=== PATIENT | female | born 1950 | race Caucasian/White ===

== ENCOUNTER 2022-11-15 12:45 | Inpatient (IN) ==
[2022-11-15] MEDS ORDERED: SODIUM CHLORIDE 0.9% 1000ML 1,000 ML IV ONE ×2 (13:27→13:38)
--- NOTE | 2022-11-15 13:49 | Emergency Department Note ---
ED Provider Note History of Present Illness Chief Complaint: Fever Stated Complaint: FEVER, URINARY SYMPTOMS - STENT REMOVAL WEDNESDAY Time Seen by Provider: 11/15/22 13:01 Source: patient Mode of arrival: ambulatory Limitations: no limitations This patient is a 72-year-old female who presents to the emergency department for evaluation of fever, right flank pain and urinary symptoms. She reports that she was treated for a UTI approximately 1 month ago. She then had a kidney stone and had surgery to remove the stone 11/03/2022. A stent was placed at that time. Patient had the stent removed 2 days ago in the office. Patient she has had persistent right flank pain since the removal of the stent. She developed a fever last night. Temperature 103 F this morning. She did take 1 g Tylenol 2 hours prior to arrival. She has had vomiting, dysuria and urinary incontinence. She states that she has had the urinary incontinence since the first UTI. Home Medications Medication Instructions Recorded Confirmed Type aspirin 81 mg tablet,delayed 81 mg PO QAM 08/24/19 11/15/22 History release atorvastatin 40 mg tablet 40 mg PO PM 08/24/19 11/15/22 History lisinopril 10 mg tablet 10 mg PO QPM 08/24/19 11/15/22 History metformin 1,000 mg tablet 1,000 mg PO BID 08/24/19 11/15/22 History pantoprazole 40 mg tablet,delayed 40 mg PO QAM 08/24/19 11/15/22 History release oxycodone-acetaminophen 5 mg-325 1 tab PO Q6H PRN pain #14 tabs 08/29/19 11/15/22 Rx mg tablet (Percocet) alendronate 70 mg tablet 70 mg PO WK 11/15/22 11/15/22 History tamsulosin 0.4 mg capsule 0.4 mg PO DAILY 11/15/22 11/15/22 History venlafaxine 75 mg capsule,extended 75 mg PO QAM 11/15/22 11/15/22 History release 24 hr Allergies Allergy/AdvReac Type Severity Reaction Status Date / Time meperidine [From Demerol] Allergy Severe DIFFICULTY Verified 11/15/22 15:32 WITH BREATHING morphine Allergy Intermediate ITCHING Verified 11/15/22 15:32 ALL OVER Past Med/Surg History Medical History Anxiety Degenerative disc disease Diabetes mellitus, type 2 A1C 7.6%06/22/19, but glucose 243 on pre op labs. In review of notes in S, PCP monitoring sugars, did not make any changes to meds as still <8%. Suggested pt may be skipping some Metformin doses due to nausea from cholelithiasis? Frequent UTI NOT CURRENT Gallstones GERD (gastroesophageal reflux disease) Hiatal hernia History of kidney stones Hx of endometriosis Hx of migraines Hyperlipidemia Hypertension Osteoarthritis Surgical History H/O laparoscopy H/O total hysterectomy History of cataract surgery RT/LEFT History of ERCP X 2 History of tooth extraction Family History Mother Family history of diabetes mellitus Social History Smoking Status: Never smoker Second Hand Exposure: No; Do You Dip or Chew Tobacco: No; Hx Alcohol Use: Yes Alcohol type: beer and wine Hx Substance Use: No Preferred Language: Kyrgyz Communication Ability: Effective Lawn Technician Required: No Beliefs That Will Affect Care: None Current Living Situation: Family Current Living Situation Comment: Patient lives with daughterEster Other Information That Helps Us Care for You: No Feels Safe at Home: Yes Safety Concerns: Feels Safe At This Time Assistive Devices: Glasses Physical Exam Vital Signs Vital Signs - 24 hr 11/15/22 12:49 11/15/22 13:24 11/15/22 13:16 Temperature 36.6 C Temperature Source Temporal Artery Scan Pulse Rate 98 H 82 78 Pulse Rate from SpO2 Sensor 79 Respiratory Rate 20 19 Respiratory Effort / Characteristics Non-Labored Spontaneous Respiratory Depth Normal Respiratory Pattern Regular Blood Pressure 101/70 124/69 Blood Pressure Mean 80 87 Blood Pressure Position Sitting Pulse Oximetry 96 92 Oxygen Delivery Method Room Air Sepsis Recent Fever Within 48 Hours Yes Sepsis New/Unexplained Change in Mental Status No Sepsis Action Taken by Nursing No Action Required 11/15/22 13:40 11/15/22 13:50 11/15/22 13:59 Temperature Temperature Source Pulse Rate 88 Pulse Rate from SpO2 Sensor 91 H 98 H 90 Respiratory Rate 27 H 29 H 22 Respiratory Effort / Characteristics Respiratory Depth Respiratory Pattern Blood Pressure 150/81 H Blood Pressure Mean 104 Blood Pressure Position Pulse Oximetry 95 93 Oxygen Delivery Method Sepsis Recent Fever Within 48 Hours Sepsis New/Unexplained Change in Mental Status Sepsis Action Taken by Nursing 11/15/22 14:01 11/15/22 15:00 11/15/22 15:10 Temperature Temperature Source Pulse Rate 94 H 105 H Pulse Rate from SpO2 Sensor 86 107 H Respiratory Rate 25 H 18 27 H Respiratory Effort / Characteristics Respiratory Depth Respiratory Pattern Blood Pressure 144/67 H Blood Pressure Mean 92 Blood Pressure Position Pulse Oximetry 98 90 90 Oxygen Delivery Method Sepsis Recent Fever Within 48 Hours Sepsis New/Unexplained Change in Mental Status Sepsis Action Taken by Nursing 11/15/22 15:20 11/15/22 15:35 Temperature 39.1 C H Temperature Source Oral Pulse Rate 110 H Pulse Rate from SpO2 Sensor 110 H Respiratory Rate 24 Respiratory Effort / Characteristics Respiratory Depth Respiratory Pattern Blood Pressure Blood Pressure Mean Blood Pressure Position Pulse Oximetry 93 Oxygen Delivery Method Sepsis Recent Fever Within 48 Hours Sepsis New/Unexplained Change in Mental Status Sepsis Action Taken by Nursing VITALS: Vitals are noted on the nurse's note and reviewed by myself. GENERAL: This is a 72-year-old female, ill-appearing. SKIN: The skin was without rashes. EYES: Pupils equal round and reactive to light and accommodation. MOUTH: Mucous membranes moist. HEART: Regular rate and rhythm without murmurs gallops or rubs. LUNGS: Clear to auscultation bilaterally without wheezes, rales or rhonchi. No retractions or accessory muscle use. ABDOMEN: Positive bowel sounds x 4. Tenderness in the right upper and right lower quadrants. Right CVA tenderness noted. NEURO: Patient was alert and oriented to person place and time. Course Administered Medications Atorvastatin Calcium (Atorvastatin 40 Mg Tab) 40 mg PO PM [facility] Stop: 12/15/22 20:59 Last Admin: 11/15/22 20:48 Dose: 40 mg Documented By: JOAQUINA Cefepime HCl 2,000 mg/ Syringe 20 mls @ 5 mls/min IV Q8H SID; Protocol Stop: 11/25/22 19:59 Last Admin: 11/15/22 20:48 Dose: 5 mls/min Documented By: JOAQUINA Sodium Chloride (Nss 1000ml) 1,000 mls @ 100 mls/hr IV .Q10H [facility] Stop: 11/16/22 05:59 Last Admin: 11/15/22 20:48 Dose: 100 mls/hr Documented By: JOAQUINA Insulin Aspart (Insulin Aspart Per Unit Charge) 0 units SC ACHS [facility] Stop: 12/15/22 20:59 Last Admin: 11/15/22 20:52 Dose: Not Given Documented By: JOAQUINA Lisinopril (Lisinopril 10 Mg Tab) 10 mg PO QPM [facility] Stop: 12/15/22 20:59 Last Admin: 11/15/22 20:48 Dose: 10 mg Documented By: JOAQUINA Oxycodone HCl (Oxycodone Hcl Ir 5 Mg Tab (Immediate Release)) 5 mg PO Q6H PRN PRN Reason: Severe Pain (Scale 7, 8, 9,10) Stop: 11/29/22 19:20 Last Admin: 11/15/22 20:47 Dose: 5 mg Documented By: JOAQUINA Discontinued Medications Sodium Chloride (Nss 1000ml) 1,000 mls @ 999 mls/hr IV .Q1H1M ONE Stop: 11/15/22 14:27 Last Infusion: 11/15/22 14:51 Dose: 0 mls/hr Documented By: Admin: 11/15/22 13:50 Dose: 999 mls/hr Documented By: PATRICK Sodium Chloride (Nss 1000ml) 1,000 mls @ 999 mls/hr IV .Q1H1M ONE Stop: 11/15/22 14:38 Last Infusion: 11/15/22 15:22 Dose: 0 mls/hr Documented By: Admin: 11/15/22 14:21 Dose: 999 mls/hr Documented By: PATRICK Ceftriaxone Sodium (Rocephin) 2,000 mg in 70 mls @ 140 mls/hr IV NOW STA Stop: 11/15/22 14:24 Last Infusion: 11/15/22 14:51 Dose: 0 mls/hr Documented By: Admin: 11/15/22 14:21 Dose: 140 mls/hr Documented By: PATRICK Acetaminophen (Ofirmev) 1,000 mg in 100 mls @ 400 mls/hr IV NOW STA Stop: 11/15/22 16:00 Last Infusion: 11/15/22 16:51 Dose: 0 mls/hr Documented By: Admin: 11/15/22 16:36 Dose: 400 mls/hr Documented By: DANIEL Ioversol (Optiray 320 100ml) 94 ml IV ONCE ONE Stop: 11/15/22 14:42 Last Admin: 11/15/22 14:41 Dose: 94 ml Documented By: ALDA Ketorolac Tromethamine (Ketorolac Tromethamine 15 Mg/Ml Vial) 15 mg IV NOW ONE Stop: 11/15/22 17:42 Last Admin: 11/15/22 17:54 Dose: 15 mg Documented By: DANIEL Ondansetron HCl (Ondansetron Inj 2 Mg/Ml 2 Ml Vial) 4 mg IV NOW STA Stop: 11/15/22 14:31 Last Admin: 11/15/22 14:32 Dose: 4 mg Documented By: PATRICK Ondansetron HCl (Ondansetron Inj 2 Mg/Ml 2 Ml Vial) Confirm Administered Dose 4 mg .ROUTE .STK-MED ONE Stop: 11/15/22 14:33 Last Admin: 11/15/22 15:24 Dose: Not Given Documented By: JAVED Medical Decision Making Differential Diagnosis Sepsis, UTI, pneumonia, metabolic, electrolyte abnormalities, cardiac sources, intracerebral event, toxicologic, neurologic, as well as other pathologies. Home Medications was personally reviewed by me Laboratory Data Attestation: I reviewed the patient's lab results. 11/15/22 13:27 11/15/22 13:27 Lab Results 11/15/22 11/15/22 11/15/22 Range/Units 13:27 13:27 13:28 WBC 13.19 H (4.8-10.8) K/ul RBC 4.54 (4.20-5.40) M/uL Hgb 11.9 L (12.0-16.0) g/dl POC Hgb (12.0-16.0) g/dl Hct 36.6 L (37.0-47.0) % POC Hct (37-47) % MCV 80.6 (80.0-100.0) fL MCH 26.2 (25.0-34.0) pg MCHC 32.5 (32.0-36.0) g/dL RDW Std Deviation 46.9 H (36.4-46.3) fL RDW Coeff of Jose Luis 16.2 H (11.5-14.5) % Plt Count 198 (130-400) K/uL MPV 10.3 (9.4-12.4) fL Immature Gran % (Auto) 0.5 % Neut % (Auto) 82.9 % Lymph % (Auto) 9.3 % Prentiss % (Auto) 7.0 % Eos % (Auto) 0.0 % Baso % (Auto) 0.3 % Neut # (Auto) 10.94 H (1.40-6.50) K/uL Lymph # (Auto) 1.23 (1.2-3.4) K/uL Prentiss # (Auto) 0.92 H (0.11-0.59) K/uL Eos # (Auto) 0.00 (0-0.50) K/uL Baso # (Auto) 0.04 (0-0.2) K/uL Immature Gran # (Auto) 0.06 (0.01-0.20) K/uL POC Sodium (135-144) mmol/L Sodium 135 L (136-145) mmol/L POC Potassium (3.3-5.0) mmol/L Potassium 3.6 (3.5-5.1) mmol/L POC Chloride (101-112) mmol/L Chloride 100 (98-107) mmol/L Carbon Dioxide 23 (21-32) mmol/L POC Total CO2 (24-31) mmol/L Anion Gap 12 H (3-11) POC Anion Gap (16-25) mmol/L POC BUN (7-18) mg/dl BUN 9 (6-23) mg/dl Creatinine 0.86 (0.6-1.2) mg/dl POC Creatinine (0.6-1.3) mg/dl Est Cr Clr Drug Dosing 59.0 ml/min Est GFR ( Amer) 78.8 ml/min Est GFR (Non-Af Amer) 68.0 ml/min BUN/Creatinine Ratio 10.5 (10-20) Glucose 171 H (70-99(Fasting)) mg/dl POC Glucose (other) (70-99) mg/dl Lactate 2.9 H* (0.4-2.0) mmol/L Calcium 9.9 (8.6-10.3) mg/dl POC Ioniz Calcium Clayton (1.12-1.32) mmol/l Total Bilirubin 1.1 H (0.2-1.0) mg/dl AST 14 (13-39) U/L ALT 9 (7-52) U/L Alkaline Phosphatase 60 (34-104) U/L Total Protein 7.2 (6.0-8.3) gm/dl Albumin 4.2 (3.4-5.0) gm/dl Globulin 3.0 (2.5-4.0) gm/dl Albumin/Globulin Ratio 1.4 (0.9-2) Urine Color Urine Appearance (Clear) Urine pH (4.5-7.5) Ur Specific [place] (1.000-1.030) Urine Protein (Negative) Urine Glucose (UA) (Negative) Urine Ketones (Negative) Urine Blood (Negative) Urine Nitrite (Negative) Urine Bilirubin (Negative) Urine Urobilinogen (Negative) Ur Leukocyte Esterase (Negative) Urine WBC (Auto) (0-5) /hpf Urine RBC (Auto) (0-4) /hpf U Hyaline Cast (Auto) (0-5) /lpf U Epithel Cells (Auto) (0-5) /lpf Urine Bacteria (Auto) (Negative) 11/15/22 11/15/22 11/15/22 Range/Units 13:38 15:19 15:19 WBC (4.8-10.8) K/ul RBC (4.20-5.40) M/uL Hgb (12.0-16.0) g/dl POC Hgb 13.3 (12.0-16.0) g/dl Hct (37.0-47.0) % POC Hct 39 (37-47) % MCV (80.0-100.0) fL MCH (25.0-34.0) pg MCHC (32.0-36.0) g/dL RDW Std Deviation (36.4-46.3) fL RDW Coeff of Jose Luis (11.5-14.5) % Plt Count (130-400) K/uL MPV (9.4-12.4) fL Immature Gran % (Auto) % Neut % (Auto) % Lymph % (Auto) % Prentiss % (Auto) % Eos % (Auto) % Baso % (Auto) % Neut # (Auto) (1.40-6.50) K/uL Lymph # (Auto) (1.2-3.4) K/uL Prentiss # (Auto) (0.11-0.59) K/uL Eos # (Auto) (0-0.50) K/uL Baso # (Auto) (0-0.2) K/uL Immature Gran # (Auto) (0.01-0.20) K/uL POC Sodium 137 (135-144) mmol/L Sodium (136-145) mmol/L POC Potassium 3.6 (3.3-5.0) mmol/L Potassium (3.5-5.1) mmol/L POC Chloride 101 (101-112) mmol/L Chloride (98-107) mmol/L Carbon Dioxide (21-32) mmol/L POC Total CO2 20 L (24-31) mmol/L Anion Gap (3-11) POC Anion Gap 21.0 (16-25) mmol/L POC BUN 8 (7-18) mg/dl BUN (6-23) mg/dl Creatinine (0.6-1.2) mg/dl POC Creatinine 0.8 (0.6-1.3) mg/dl Est Cr Clr Drug Dosing ml/min Est GFR ( Amer) ml/min Est GFR (Non-Af Amer) ml/min BUN/Creatinine Ratio (10-20) Glucose (70-99(Fasting)) mg/dl POC Glucose (other) 170 H (70-99) mg/dl Lactate 3.0 H* (0.4-2.0) mmol/L Calcium (8.6-10.3) mg/dl POC Ioniz Calcium Clayton 1.14 (1.12-1.32) mmol/l Total Bilirubin (0.2-1.0) mg/dl AST (13-39) U/L ALT (7-52) U/L Alkaline Phosphatase (34-104) U/L Total Protein (6.0-8.3) gm/dl Albumin (3.4-5.0) gm/dl Globulin (2.5-4.0) gm/dl Albumin/Globulin Ratio (0.9-2) Urine Color Yellow Urine Appearance Clear (Clear) Urine pH 6.0 (4.5-7.5) Ur Specific [place] > 1.045 H (1.000-1.030) Urine Protein 1+ H (Negative) Urine Glucose (UA) Negative (Negative) Urine Ketones Trace H (Negative) Urine Blood 1+ H (Negative) Urine Nitrite Negative (Negative) Urine Bilirubin Negative (Negative) Urine Urobilinogen Negative (Negative) Ur Leukocyte Esterase Negative (Negative) Urine WBC (Auto) 5-10 H (0-5) /hpf Urine RBC (Auto) 5-10 H (0-4) /hpf U Hyaline Cast (Auto) 1-5 (0-5) /lpf U Epithel Cells (Auto) 5-10 H (0-5) /lpf Urine Bacteria (Auto) Negative (Negative) Imaging Data Attestation: I personally reviewed and interpreted this imaging study as follows: Radiologist's Impression: Abdomen/Pelvis CT 11/15/22 13:27 CT abd pelvis IV con only CLINICAL HISTORY: pyelonephritis TECHNIQUE: Helical axial images of the abdomen and pelvis were obtained and displayed. Automated dose lowering techniques and/or adjustment according to patient size were utilized for this exam. This exam was performed with intra venous contrast. CT DOSE: 1343.27 mGy.cm COMPARISON: Comparison is made to ultrasound renal 10/17/2022 FINDINGS: Lower chest: Bibasilar atelectasis versus scarring is seen. Liver: Unremarkable. No focal lesions are seen. Gallbladder and biliary tree: Patient is status post cholecystectomy. No intra- or extrahepatic biliary ductal dilation. Pancreas: Unremarkable, no focal lesions. Spleen: Unremarkable. Adrenals: Unremarkable. Kidneys and ureters: There is enhancement and thickening of the right ureter with wedge-shaped hypoenhancement in the right kidney. Parapelvic lymph nodes are seen on the left. Bladder: Diffuse homogeneous wall thickening is seen. Reproductive organs: Unremarkable. Bowel: Unremarkable. Lymph nodes Retroperitoneal: Unremarkable. Pelvic: Unremarkable. Mesenteric: Unremarkable. Peritoneum: Normal. Vessels: Atherosclerotic calcifications are seen. Abdominal wall: A fat-containing umbilical hernia is seen. Bones: Degenerative changes in the visualized spine. IMPRESSION: Findings are compatible with right hydronephrosis and pyelitis. ACT 112: Negative or not required by law. Electronically signed by: Stan De Los Santos M.D. 11/15/2022 3:44 PM ECG Data Attestation: I personally reviewed and interpreted this ECG as follows: Indication: + other Rate (beats per minute): 83 Rhythm: + normal sinus ECG Intervals/blocks: + Short AR ECG ST segments: + Nonspecific ST abnormalities Comparison ECG Date: no prior available MDM Narrative This patient is a 72-year-old female who presents to the emergency department for evaluation of right-sided abdominal/flank pain and fever. Patient recently underwent urological stenting and had the stent removed 2 days ago. She is martinez ving persistent pain and now having fevers. CT was performed and does show evidence of right-sided pyelitis/pyelonephritis. Lactate was elevated at 2.9. Patient has a leukocytosis of 13,000. She was treated with Rocephin. She was given IV fluids, a total of 2000 mL normal saline solution. Sepsis fluid volume calculations were done using ideal body weight. Patient was given IV Tylenol for a fever. She appears to be septic from her urinary tract infection. [facility] the patient for further care. Impression Sepsis, Complicated UTI (urinary tract infection) Critical Care Time Critical Care Time: Yes Total Critical Care Time: 35 I have personally spent greater than 35 minutes of critical care time in the direct management of this patient. This includes bedside care, interpretation of diagnostic studies, and testing, discussion with consultants, patient, and family members, and other required patient management activities. This 35 minutes is in excess of all separately billable procedures. Discharge Plan Visit Data Chief Complaint: Fever Stated Complaint: FEVER, URINARY SYMPTOMS - STENT REMOVAL WEDNESDAY ED Provider: Willian George ED Midlevel Provider: Mindy Cameron Discharge Problem: Sepsis, Complicated UTI (urinary tract infection) Patient Disposition: Admitted As Inpatient Discharge Instructions Interventions: ED Discharge Assessment Last Done: 11/15/22 18:20
[2022-11-15 13:50] LABS: Basophils # (auto) 0.04 K/uL (0-0.2); Basophils % (auto) 0.3 %; Hematocrit (blood only) 36.6 % (37.0-47.0); Hemoglobin 11.9 g/dl (12.0-16.0); Immature Granulocytes # (auto) 0.06 K/uL (0.01-0.20); Immature Granulocytes % (auto) 0.5 %; Lymphocytes # (auto) 1.23 K/uL (1.2-3.4); Lymphocytes % (auto) 9.3 %; Mean Corpuscular Hemoglobin 26.2 pg (25.0-34.0); Mean Corpuscular Hgb Conc 32.5 g/dL (32.0-36.0); Mean Corpuscular Volume 80.6 fL (80.0-100.0); Mean Platelet Volume 10.3 fL (9.4-12.4); Monocytes # (auto) 0.92 K/uL (0.11-0.59); Neutrophils # (auto) 10.94 K/uL (1.40-6.50); Neutrophils % (auto) 82.9 %; Platelet Count 198 K/uL (130-400); RDW Coefficient of Variation 16.2 % (11.5-14.5); RDW Standard Deviation 46.9 fL (36.4-46.3); Red Blood Count 4.54 M/uL (4.20-5.40); White Blood Count 13.19 K/ul (4.8-10.8)
[2022-11-15 13:52] LABS: iSTAT Creatinine 0.8 mg/dl (0.6-1.3); iSTAT Hemoglobin 13.3 g/dl (12.0-16.0); iSTAT Ionized Calcium 1.14 mmol/l (1.12-1.32); iSTAT Potassium 3.6 mmol/L (3.3-5.0)
[2022-11-15] MEDS ORDERED: cefTRIAXone SODIUM 2,000 MG/70 ML BAG IV STA (13:55)
[2022-11-15 14:01] LABS: Albumin Globulin Ratio 1.4 (0.9-2); Albumin Level 4.2 gm/dl (3.4-5.0); BUN Creatinine Ratio 10.5 (10-20); Bilirubin,Total 1.1 mg/dl (0.2-1.0); Calcium 9.9 mg/dl (8.6-10.3); Est GFR (African American) 78.8 ml/min; Potassium 3.6 mmol/L (3.5-5.1); Total Protein 7.2 gm/dl (6.0-8.3)
[2022-11-15] MEDS ORDERED: ONDANSETRON INJ 2 MG/ML 2 ML VIAL IV STA (14:30)
[2022-11-15] MEDS ORDERED: ONDANSETRON INJ 2 MG/ML 2 ML VIAL ONE (14:32)
[2022-11-15] MEDS ORDERED: OPTIRAY 320 100ml IV ONE (14:41)
[2022-11-15 15:34] LABS: Appearance Urine Clear (Clear); Bacteria Urine Automated Negative (Negative); Bilirubin Urine Negative (Negative); Blood Urine 1+ (Negative); Color Urine Yellow; Glucose Urine UA Negative (Negative); Ketones Urine Trace (Negative); Leukocyte Esterase Urine Negative (Negative); Nitrite Urine Negative (Negative); Protein Urine 1+ (Negative); Specific Gravity Urine > 1.045 (1.000-1.030); Urobilinogen Urine Negative (Negative)
--- NOTE | 2022-11-15 15:45 | CT Scan Report ---
CT abd pelvis IV con only CLINICAL HISTORY: pyelonephritis TECHNIQUE: Helical axial images of the abdomen and pelvis were obtained and displayed. Automated dose lowering techniques and/or adjustment according to patient size were utilized for this exam. This e xam was performed with intravenous contrast. CT DOSE: 1343.27 mGy.cm COMPARISON: Comparison is made to ultrasound renal 10/17/2022 FINDINGS: Lower chest: Bibasilar atelectasis versus scarring is seen. Liver: Unremarkable. No focal lesions are seen. Gallbladder and biliary tree: Patient is status post cholecystectomy. No intra- or extrahepatic bilia ry ductal dilation. Pancreas: Unremarkable, no focal lesions. Spleen: Unremarkable. Adrenals: Unremarkable. Kidneys and ureters: There is enhancement and thickening of the right ureter with wedge-shaped hypoen hancement in the right kidney. Parapelvic lymph nodes are seen on the left. Bladder: Diffuse homogeneous wall thickening is seen. Reproductive organs: Unremarkable. Bowel: Unremarkable. Lymph nodes Retroperitoneal: Unremarkable. Pelvic: Unremarkable. Mesenteric: Unremarkable. Peritoneum: Normal. Vessels: Atherosclerotic calcifications are seen. Abdominal wall: A fat-containing umbilical hernia is seen. Bones: Degenerative changes in the visualized spine. IMPRESSION: Findings are compatible with right hydronephrosis and pyelitis. ACT 112: Negative or not required by law. Electronically signed by: Stan De Los Santos M.D. 11/15/2022 3:44 PM
[2022-11-15] MEDS ORDERED: ACETAMINOPHEN 1,000 MG/100 ML VIAL IV STA (15:46)
--- NOTE | 2022-11-15 16:46 | History & Physical Report ---
Date of Service November 15, 2022 Assessment & Plan (1) Sepsis: (2) Complicated UTI (urinary tract infection): (3) Hydronephrosis, right: (4) Hyperlipidemia: (5) GERD (gastroesophageal reflux disease): (6) Anxiety: (7) Diabetes mellitus, type 2: (8) Hypertension: Plan This is a 72-year-old female with PMH of type 2 diabetes, dyslipidemia, hypothyroidism, depression, anxiety, recent urological intervention with stent placement and removal by Dr. Aviles at [facility] and other medical problems listed below who presents with fever, chills and R flank pain meeting criteria for severe sepsis 2/2 complicated UTI. 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 Continue lisinopril HLD Continue statin Anxiety, depression Continue venlafaxine DVT Ppx: SCDS for tonight in case of urological intervention Code status: FULL PCP: Kenan Dispo: Admitted to PCU for now Patient seen in collaboration with Dr. Tejeda. Please see addendum. History of Present Illness Chief Complaint: Urinary pain, fever Primary Care Provider: Sumanth Grayson MD This is a 72-year-old female with PMH of type 2 diabetes, dyslipidemia, hypothyroidism, depression, anxiety, recent urological intervention with stent placement and removal by Dr. Aviles at [facility] and other medical problems listed below who presents with fever, chills and R flank pain. Patient with history of an E. coli UTI per outpatient urine culture from 10/17/22 and was treated with Cipro course. Also noted to have R hydronephrosis 2/2 distal ureteral stone which was removed with stent placement by Dr. Aviles at [facility] on 11/03. Returned for stent removal 2 days ago on 11/13 and reports persistent R flank pain since then. Overnight, patient developed a fever and it was 103 F this morning when she checked. Took 1 gm Tylenol at home and came to [facility] ED for further evaluation. Also endorses N/V this morning with 1 episode of vomiting occurring in the ED earlier. Feels better after antiemetics. Continues to have right-sided flank pain that wraps around to bladder with pain with urination. Also endorsing some urinary incontinence, which happens when she has a bladder infection per patient. Denies any lightheadedness, chest pain, shortness of breath, abdominal pain, hematuria, diarrhea or constipation. Allergies Allergy/AdvReac Type Severity Reaction Status Date / Time meperidine [From Demerol] Allergy Severe DIFFICULTY Verified 11/15/22 15:32 WITH BREATHING morphine Allergy Intermediate ITCHING Verified 11/15/22 15:32 ALL OVER Home Medications Medication Instructions Recorded Confirmed Type aspirin 81 mg tablet,delayed 81 mg PO QAM 08/24/19 11/15/22 History release atorvastatin 40 mg tablet 40 mg PO PM 08/24/19 11/15/22 History lisinopril 10 mg tablet 10 mg PO QPM 08/24/19 11/15/22 History metformin 1,000 mg tablet 1,000 mg PO BID 08/24/19 11/15/22 History pantoprazole 40 mg tablet,delayed 40 mg PO QAM 08/24/19 11/15/22 History release oxycodone-acetaminophen 5 mg-325 1 tab PO Q6H PRN pain #14 tabs 08/29/19 11/15/22 Rx mg tablet (Percocet) alendronate 70 mg tablet 70 mg PO WK 11/15/22 11/15/22 History tamsulosin 0.4 mg capsule 0.4 mg PO DAILY 11/15/22 11/15/22 History venlafaxine 75 mg capsule,extended 75 mg PO QAM 11/15/22 11/15/22 History release 24 hr Past Med/Surg History Medical History (Updated 11/15/22 @ 17:48 by Sahma Alvarez PA-C) Anxiety Degenerative disc disease Diabetes mellitus, type 2 A1C 7.6%06/22/19, but glucose 243 on pre op labs. In review of notes in S, PCP monitoring sugars, did not make any changes to meds as still <8%. Suggested pt may be skipping some Metformin doses due to nausea from cholelithiasis? Frequent UTI NOT CURRENT Gallstones GERD (gastroesophageal reflux disease) Hiatal hernia History of kidney stones Hx of endometriosis Hx of migraines Hyperlipidemia Hypertension Osteoarthritis Surgical History H/O laparoscopy H/O total hysterectomy History of cataract surgery RT/LEFT History of ERCP X 2 History of tooth extraction Family History Mother Family history of diabetes mellitus Social History Smoking Status: Never smoker Second Hand Exposure: No; Do You Dip or Chew Tobacco: No; Hx Alcohol Use: Yes Alcohol type: wine Hx Substance Use: No Preferred Language: Greenlandic Wrong Address Clerk Required: No Beliefs That Will Affect Care: None Current Living Situation: Family Current Living Situation Comment: DAUGHTER LIVES WITH PT Feels Safe at Home: Yes Assistive Devices: Denture - Lower and Glasses Review of Systems Review of Systems: At least ten systems reviewed and negative except as noted in the HPI. Physical Exam Physical Exam: General Appearance: WD/WN, vitals as above, NAD, sitting up in bed, pleasant, conversing easily, appears ill, flushed Head: normocephalic, atraumatic Eyes: normal inspection, PERRL, conjunctivae normal, anicteric sclerae ENT: external ear and nose normal, oropharynx normal Neck: normal visual inspection, trachea midline, no thyromegaly Respiratory: normal respiratory effort, lungs clear to auscultation, no wheeze, rales, rhonchi. No accessory muscle use Cardiovascular: tachycardic rate, regular rhythm, normal peripheral pulses, no BLE edema. Vessels: no JVD Chest: normal inspection of chest Abdomen/GI: normal bowel sounds, soft, nontender, no hepatosplenomegaly : R CVA TTP, suprapubic tenderness as well Extremities/Musculoskeletal: no cyanosis or clubbing, extremities motor strength 5/5 Neurologic: PERRL, EOMI, accommodation nl, no face palsy, no dysarthria, CN's II-XI intact bilaterally and moves all extremities Psychiatric: A+Ox3, euthymic affect Skin: no rashes, normal color, warm/dry Results & Data Results & Data Vital Signs (Past 12 Hours) Vital Signs Temp Pulse Resp BP Pulse Ox O2 Del Method 11/15/22 15:35 39.1 C H 11/15/22 15:20 110 H 24 93 11/15/22 15:10 105 H 27 H 90 11/15/22 15:00 18 90 11/15/22 14:01 94 H 25 H 144/67 H 98 11/15/22 13:59 88 22 150/81 H 93 11/15/22 13:50 29 H 11/15/22 13:40 27 H 95 11/15/22 13:16 78 19 124/69 92 11/15/22 13:24 82 11/15/22 12:49 36.6 C 98 H 20 101/70 96 Room Air Laboratory Results Short CBC 11/15/22 Range/Units 13:27 WBC 13.19 H (4.8-10.8) K/ul Hgb 11.9 L (12.0-16.0) g/dl Hct 36.6 L (37.0-47.0) % Plt Count 198 (130-400) K/uL BMP 11/15/22 13:27 Sodium 135 L Potassium 3.6 Chloride 100 Carbon Dioxide 23 BUN 9 Creatinine 0.86 Glucose 171 H Calcium 9.9 Liver Function 11/15/22 Range/Units 13:27 Total Bilirubin 1.1 H (0.2-1.0) mg/dl AST 14 (13-39) U/L ALT 9 (7-52) U/L Alkaline Phosphatase 60 (34-104) U/L Albumin 4.2 (3.4-5.0) gm/dl Urine 11/15/22 Range/Units 15:19 Urine Color Yellow Urine Appearance Clear (Clear) Urine pH 6.0 (4.5-7.5) Ur Specific [place] > 1.045 H (1.000-1.030) Urine Protein 1+ H (Negative) Urine Glucose (UA) Negative (Negative) Diagnostic Findings Abdomen/Pelvis CT 11/15/22 13:27 CT abd pelvis IV con only CLINICAL HISTORY: pyelonephritis TECHNIQUE: Helical axial images of the abdomen and pelvis were obtained and displayed. Automated dose lowering techniques and/or adjustment according to patient size were utilized for this exam. This exam was performed with intravenous contrast. CT DOSE: 1343.27 mGy.cm COMPARISON: Comparison is made to ultrasound renal 10/17/2022 FINDINGS: Lower chest: Bibasilar atelectasis versus scarring is seen. Liver: Unremarkable. No focal lesions are seen. Gallbladder and biliary tree: Patient is status post cholecystectomy. No intra- or extrahepatic biliary ductal dilation. Pancreas: Unremarkable, no focal lesions. Spleen: Unremarkable. Adrenals: Unremarkable. Kidneys and ureters: There is enhancement and thickening of the right ureter with wedge-shaped hypoenhancement in the right kidney. Parapelvic lymph nodes are seen on the left. Bladder: Diffuse homogeneous wall thickening is seen. Reproductive organs: Unremarkable. Bowel: Unremarkable. Lymph nodes Retroperitoneal: Unremarkable. Pelvic: Unremarkable. Mesenteric: Unremarkable. Peritoneum: Normal. Vessels: Atherosclerotic calcifications are seen. Abdominal wall: A fat-containing umbilical hernia is seen. Bones: Degenerative changes in the visualized spine. IMPRESSION: Findings are compatible with right hydronephrosis and pyelitis. ACT 112: Negative or not required by law. Electronically signed by: Stan De Los Santos M.D. 11/15/2022 3:44 PM Code Status & VTE Plan VTE Prophylaxis Plan VTE Prophylaxis will be ordered: Yes Supervising Physician Co-Signing Physician Notes Pt seen and examined by myself, Ernestina Tejeda MD on the day of service. Care was coordinated with Shama Alvarez PA-C. Please refer to her note for additional information. 72yoF with recent urological procedure presenting with fever, elevated WBC and RLQ abd/flank/pelvic pain. States the pain is sharp and shooting, not relieved by home oxycodone use. UA without signs of infection at this time. CT abd/pelvis notes R hydronephrosis and possible infection. Blood Cx x2 pending. Cefepime, pain control, urology consult-appreciate recs. Otherwise as above
[2022-11-15] MEDS ORDERED: oxyCODONE/ACETAMINOPHEN 5mg/325mg TAB PO PRN (17:40)
[2022-11-15] MEDS ORDERED: KETOROLAC TROMETHAMINE 15 MG/ML VIAL IV ONE (17:41)
[2022-11-15] MEDS ORDERED: GLUCOSE 10 TAB/TUBE PO PRN (20:00)
[2022-11-15] MEDS ORDERED: GLUCAGON FOR INJ 1 MG VIAL SQ PRN (20:00)
[2022-11-15] MEDS ORDERED: CARBOHYDRATES FOR HYPOGLYCEMIA PO PRN (20:00)
[2022-11-15] MEDS ORDERED: GLUCOSE 40% GEL 15 GM TUBE PO PRN (20:00)
[2022-11-15] MEDS ORDERED: ONDANSETRON INJ 2 MG/ML 2 ML VIAL IV PRN (20:00)
[2022-11-15] MEDS ORDERED: DEXTROSE 50% 50 ML SYRINGE IV PRN (20:00)
[2022-11-15] MEDS ORDERED: POLYETHYLENE (MIRALAX) 17 GM PACK PO PRN (20:00)
[2022-11-15] MEDS ORDERED: SODIUM CHLORIDE 0.9% 1000ML 1,000 ML IV SCH (20:00)
--- NOTE | 2022-11-15 20:30 | Urology Consultation ---
72-year-old female with sepsis s/p stone removal at outside facility and subsequent stent removal. PCR demonstrating Enterococcus which is likely poorly covered by her current cefepime. Would recommend additional antibiotics such as vancomycin for coverage of Enterococcus some degree of hydronephrosis is to be expected after stone removal having a stent in place. If she does not improve clinically with appropriate antibiotics, we could replace a stent, however there is no focal obstruction apparent at this point. Urology will follow along Date of Consultation November 15, 2022 Assessment & Plan (1) Hydronephrosis, right: Patient has been admitted on the hospitalist service. From a urologic perspective we recommend proceeding as follows: Provide analgesics Provide antiemetics Provide antipyretics It appears as though the patient has sepsis from likely pyelitis. She is be ing resuscitated with intravenous fluids which should continue. She is also been treated thus far with broad-spectrum antibiotics in form of cefepime which should continue. Appropriate cultures have been sent and these results will be followed with antibiotics tailored based on these results. On the patient's CT scan from this admission she does have right-sided hydronephrosis. She was noted to have right-sided hydronephrosis by renal ultrasound done at [facility] in mid October of this year. I suspect some of the hydronephrosis is likely due to her recent kidney stones and recent urologic procedure. There are no obvious obstructing lesions noted on her CT scan at this time thus I do not feel repeat cystoscopy with stent placement is needed at this time. As noted in the history of present illness the patient did spike a temperature during my visit. We will continue to follow cultures and continue antibiotics and intravenous fluids. If patient continues to have temperature spikes and persistent flank pain despite the above measures consideration be given to repeating CT scan of the patient's abdomen pelvis to see if there is any development of renal abscess. Additional recommendations to be forthcoming based on her clinical course as unfolds History of Present Illness Reason for Consultation: Pyelitis Attending Physician: Ernestina Tejeda MD History of Present Illness This is a 72-year-old female who presented to the emergency department secondary to fevers and flank pain. Patient reports that she had right-sided kidney stones and underwent a cystoscopy on 11/03/2022 at [facility] by Dr. Aviles. The patient also said she had a stent placed at that time. On 11/13/2022 (2 days ago) she had her stent removed in the office by Dr. Aviles. She did experience some flank pain following stent removal at this ultimately resolved. Patient says that she has been incontinent of urine since her procedure and was told by Dr. Aviles that this is to be expected and would likely resolve on its own. She does note that she was doing relatively well until last evening she spiked a temperature of 100.3 with associated chills. She does note some suprapubic discomfort and denies any dysuria or hematuria. She also reports some right-sided flank pain. She also reports that she has had intermittent nausea and vomiting. Since arrival to the hospital the patient has had labs and imaging which independent reviewed. She had a CT scan of the abdomen and pelvis where patient was noted to have right-sided hydronephrosis. She was also noted to have a wedge-shaped hypoenhancement in the right kidney. The interpreting radiologist felt that these findings were consistent with pyelitis. Labs include a CBC her white blood cell count was elevated at 13.1. Hematocrit and hemoglobin were 36.6 and 11.9 respectively. Platelet count was normal. Chemistry profile showed sodium was 135 with a normal potassium. Her BUN and creatinine were also normal. Lactic acid was initially elevated at 2.9. This was checked approximately 2 hours later and was 3.0. The patient was treated with intravenous fluid resuscitation as well as antibiotics and a subsequent lactic acid level was checked approximately 3-1/2 hours later and was noted to be normal and not elevated. Urinalysis was checked which was negative for nitrites and as well as negative for leukocyte Estrace. There were only 5-10 white blood cells per high-power field and no bacteria on the study. During my visit with the patient she began experiencing some shakes and a temperature was checked and was noted to be 38.3. Other than the temperature spike during my visit she was not in any distress. Allergies Allergy/AdvReac Type Severity Reaction Status Date / Time meperidine [From Demerol] Allergy Severe DIFFICULTY Verified 11/15/22 15:32 WITH BREATHING morphine Allergy Intermediate ITCHING Verified 11/15/22 15:32 ALL OVER Home Medications Medication Instructions Recorded Confirmed Type aspirin 81 mg tablet,delayed 81 mg PO QAM 08/24/19 11/15/22 History release atorvastatin 40 mg tablet 40 mg PO PM 08/24/19 11/15/22 History lisinopril 10 mg tablet 10 mg PO QPM 08/24/19 11/15/22 History metformin 1,000 mg tablet 1,000 mg PO BID 08/24/19 11/15/22 History pantoprazole 40 mg tablet,delayed 40 mg PO QAM 08/24/19 11/15/22 History release oxycodone-acetaminophen 5 mg-325 1 tab PO Q6H PRN pain #14 tabs 08/29/1911/15 Rx mg tablet (Percocet) alendronate 70 mg tablet 70 mg PO WK 11/15/22 11/15/22 History tamsulosin 0.4 mg capsule 0.4 mg PO DAILY 11/15/22 11/15/22 History venlafaxine 75 mg capsule,extended 75 mg PO QAM 11/15/22 11/15/22 History release 24 hr Patient History Medical History Anxiety Degenerative disc disease Diabetes mellitus, type 2 A1C 7.6%06/22/19, but glucose 243 on pre op labs. In review of notes in [facility], PCP monitoring sugars, did not make any changes to meds as still <8%. Suggested pt may be skipping some Metformin doses due to nausea from cholelithiasis? Frequent UTI NOT CURRENT Gallstones GERD (gastroesophageal reflux disease) Hiatal hernia History of kidney stones Hx of endometriosis Hx of migraines Hyperlipidemia Hypertension Osteoarthritis Surgical History H/O laparoscopy H/O total hysterectomy History of cataract surgery RT/LEFT History of ERCP X 2 History of tooth extraction Family History Mother Family history of diabetes mellitus Social History Smoking Status: Never smoker Second Hand Exposure: No; Do You Dip or Chew Tobacco: No; Hx Alcohol Use: Yes Alcohol type: beer and wine Hx Substance Use: No Preferred Language: Yemeni Communication Ability: Effective Boning Room Worker Required: No Beliefs That Will Affect Care: None Current Living Situation: Family Current Living Situation Comment: Patient lives with daughterEster Other Information That Helps Us Care for You: No Feels Safe at Home: Yes Safety Concerns: Feels Safe At This Time Assistive Devices: Glasses Review of Systems Constitutional: + fever and + chills Ear, Nose, Mouth, Throat: no hearing loss Respiratory: no cough and no dyspnea Cardiovascular: no chest pain Gastrointestinal: + nausea and + vomiting Genitourinary: as per Subjective / HPI Musculoskeletal: + back pain (Right flank) Integumentary: no rash Neurologic: no localized weakness Physical Exam Constitutional: WD/WN, vitals as above Eyes: no conjunctival abnormality ENMT: Ears: no hearing impairment and no external ear abnormality Mouth: no oropharynx abnormality Neck: trachea midline Respiratory: normal respiratory effort; no respiratory distress and no labored breathing Cardiovascular: Rate/Rhythm: regular rate and regular rhythm Vessels: dorsalis pedis pulses present and radial pulses present Gastrointestinal (Abdomen): Soft and nonrigid. The patient did have pain with palpation on the right side of her abdomen greatest in the right lower quadrant. There is no rebound tenderness or guarding. Musculoskeletal: No calf tenderness Skin: no rashes Neurologic: moves all extremities Psychiatric: A+Ox3, euthymic affect Genitourinary: CVA tenderness noted with percussion on the right. No CVA tenderness on the left. Results & Data Vital Signs (Past 12 Hours) Vital Signs Temp Pulse Pulse Resp BP BP Pulse Ox 11/15/22 20:08 36.9 C 81 18 111/64 96 11/15/22 18:20 11/15/22 17:50 90 11/15/22 17:47 37.2 C 88 12 114/67 91 11/15/22 16:39 93 H 20 110/70 92 11/15/22 15:35 39.1 C H 11/15/22 15:20 110 H 24 93 11/15/22 15:10 105 H 27 H 90 11/15/22 15:00 18 90 11/15/22 14:01 94 H 25 H 144/67 H 98 11/15/22 13:59 88 22 150/81 H 93 11/15/22 13:50 29 H 11/15/22 13:40 27 H 95 11/15/22 13:16 78 19 124/69 92 11/15/22 13:24 82 11/15/22 12:49 36.6 C 98 H 20 101/70 96 O2 Del Method 11/15/22 20:08 Room Air 11/15/22 18:20 Room Air 11/15/22 17:50 11/15/22 17:47 Room Air 11/15/22 16:39 Room Air 11/15/22 15:35 11/15/22 15:20 11/15/22 15:10 11/15/22 15:00 11/15/22 14:01 11/15/22 13:59 11/15/22 13:50 11/15/22 13:40 11/15/22 13:16 11/15/22 13:24 11/15/22 12:49 Room Air PG Care Time/CCT Total # of Minutes Spent Total Time Spent with Patient: Total time spent is greater than 50% in coordination of care (as documented) at patient's floor/unit and/or counseling patient: Coding Level of Care Code 83725 INT INP/OBS CARE 3/75MIN Diagnoses Hydronephrosis, right N13.30
[2022-11-15] MEDS: oxyCODONE HCL IR 5 MG TAB (IMMEDIATE RELEASE) PO PRN (20:47)
[2022-11-15] MEDS: CEFEPIME 2,000 MG in SYRINGE 0 ML IV SCH (20:48)
[2022-11-15] MEDS: ATORVASTATIN 40 MG TAB PO SCH (20:48)
[2022-11-15] MEDS: lisinopril 10 MG TAB PO SCH (20:48)
[2022-11-15] MEDS: INSULIN ASPART PER UNIT CHARGE SC SCH (20:52)
[2022-11-15] MEDS: ACETAMINOPHEN 500 MG TAB PO SCH (23:26)
[2022-11-15] MEDS: KETOROLAC TROMETHAMINE 15 MG/ML VIAL IV PRN (23:26)
[2022-11-15] MEDS ORDERED: MAGNESIUM SULFATE / D5W 1 GM/100 ML BAG IV ONE (23:30)
[2022-11-15 23:44] LABS: Magnesium 1.2 mg/dl (1.7-2.4)
[2022-11-15 23:51] LABS: Base Excess ABG -2.7 mEq/L (-9-1.8); HCO3 ABG 20 mmol/L (19-24); Oxygen Saturation ABG 97.3 % (90-95); PCO2 ABG 30 mmHg (35-46); PO2 ABG 75 mmHg (80-95); pH ABG 7.44 (7.35-7.45)
[2022-11-15] MEDS ORDERED: ALBUMIN 25% 25 GM/100 ML VIAL IV ONE (23:53)
[2022-11-15] MEDS ORDERED: FUROSEMIDE INJ 20 MG/2 ML VIAL IV ONE (23:53)
[2022-11-15] MEDS ORDERED: POTASSIUM CHLORIDE CRTAB 20 MEQ TABCR PO STA (23:53)
[2022-11-16] LABS: Allen Test Pos (Pos)
[2022-11-16] MEDS: MAGNESIUM SULFATE / D5W 1 GM/100 ML BAG IV SCH ×3 (01:57→05:04)
[2022-11-16] MEDS: CEFEPIME 2,000 MG in SYRINGE 0 ML IV SCH ×2 (04:01→15:34)
[2022-11-16] MEDS ORDERED: ALBUMIN 25% 25 GM/100 ML VIAL IV ONE (04:16)
[2022-11-16 06:23] LABS: A calco-baum cmplx NotReported Not Detected (NotDetected); Bact fragilis Not Reported Not Detected (NotDetected); C auris Not Reported Not Detected (NotDetected); Calbicans Not Reported Not Detected (NotDetected); Candida glabrata Not Reported Not Detected (NotDetected); Candida krusei Not Reported Not Detected (NotDetected); Cneoformans/gatti Not Reported Not Detected (NotDetected); Cparapsilosis Not Reported Not Detected (NotDetected); Ctropicalis Not Reported Not Detected (NotDetected); E cloacae compx Not Reported Not Detected (NotDetected); Efaecalis Not Reported DETECTED (NotDetected); Efaecium Not Reported Not Detected (NotDetected); Enterobacterales Not Reported Not Detected (NotDetected); Escherichia coli Not Reported Not Detected (NotDetected); H influenzae Not Reported Not Detected (NotDetected); K aerogenes Not Reported Not Detected (NotDetected); Koxytoca Not Reported Not Detected (NotDetected); Kpneumoniae grp Not Reported Not Detected (NotDetected); Lmonocyt Not Reported Not Detected (NotDetected); N meningitidis Not Reported Not Detected (NotDetected); P aeruginosa Not Reported Not Detected (NotDetected); Proteus spp Not Reported Not Detected (NotDetected); Salmonella spp Not Reported Not Detected (NotDetected); Smarcescens Not Reported Not Detected (NotDetected); Staph lugdunensis Not Reported Not Detected (NotDetected); Staph spp. Not Reported Not Detected (NotDetected); Staphaureus Not Reported Not Detected (NotDetected); Staphepi Not Reported Not Detected (NotDetected); Stenmaltophilia Not Reported Not Detected (NotDetected); Strep agal(GrpB) Not Reported Not Detected (NotDetected); Strep pneum Not Reported Not Detected (NotDetected); Strep pyog (GrpA) Not Reported Not Detected (NotDetected); Strep spp Not Reported Not Detected (NotDetected); VanAB Resistant Gene VRE Not Detected (NotDetected)
[2022-11-16 06:31] LABS: Enterococcus faecalis DETECTED (NotDetected)
[2022-11-16 07:01] LABS: Hematocrit (blood only) 28.9 % (37.0-47.0); Hemoglobin 9.3 g/dl (12.0-16.0); Mean Corpuscular Hemoglobin 26.4 pg (25.0-34.0); Mean Corpuscular Hgb Conc 32.2 g/dL (32.0-36.0); Mean Corpuscular Volume 82.1 fL (80.0-100.0); Mean Platelet Volume 10.4 fL (9.4-12.4); Platelet Count 145 K/uL (130-400); RDW Coefficient of Variation 16.6 % (11.5-14.5); RDW Standard Deviation 49.4 fL (36.4-46.3); Red Blood Count 3.52 M/uL (4.20-5.40); White Blood Count 8.37 K/ul (4.8-10.8)
--- NOTE | 2022-11-16 07:07 | XRay Report ---
XR chest 1V portable HISTORY: Hypoxia. COMPARISON: None. FINDINGS: No pneumothorax. No pleural effusions. The heart is mildly enlarged. There is mild central pulmonary vascular congestion without overt edema. There are low lung volumes. Calcifications within the aortic knob. A few left basilar linear densities suggestive of subsegmental atelectasis or scarri ng. Otherwise, the lungs are clear. IMPRESSION: Cardiomegaly with mild central pulmonary vascular congestion without overt edema. ACT 112: Negative or not required by law. Electronically signed by: Mayito Eaton M.D. 11/16/2022 7:06 AM
[2022-11-16] MEDS: ACETAMINOPHEN 500 MG TAB PO SCH (07:14)
[2022-11-16 07:19] LABS: BUN Creatinine Ratio 12.4 (10-20); Calcium 8.4 mg/dl (8.6-10.3); Creatinine Clr Calc Pharmacy 53.2 ml/min; Est GFR (African American) 68.1 ml/min; Est GFR (Non-African American) 58.8 ml/min; Magnesium 1.8 mg/dl (1.7-2.4)
[2022-11-16] MEDS: ASPIRIN 81 MG ECTAB PO SCH (08:39)
[2022-11-16] MEDS: TAMSULOSIN HCL 0.4 MG CAP PO SCH (08:39)
[2022-11-16] MEDS: PANTOprazole 40 MG TAB PO SCH (08:40)
[2022-11-16] MEDS: VENLAFAXINE HCL XR 75 MG CAPXR PO SCH (08:40)
--- NOTE | 2022-11-16 08:57 | Urology Progress Note ---
Date of Service November 16, 2022 Assessment & Plan (1) Hydronephrosis, right: (2) Complicated UTI (urinary tract infection): (3) Sepsis: Plan: Follow-up of sepsis s/p stone removal at outside facility and subsequent stent removal. Febrile this morning, Tmax 39.4. Labs show - creatinine 0.97, WBC 8.37, Hgb 9.3. Blood cultures growing Gram positive cocci in chains. PCR demonstrating Enterococcus which is likely poorly covered by her current cefepime. Would recommend additional antibiotics such as Vancomycin for coverage of Enterococcus - discussed with attending hospitalist. Some degree of hydronephrosis is to be expected after stone treatment and stent removal. If she does not improve clinically with appropriate antibiotics, can consider replacing stent or repeat imaging, however there is no focal obstruction apparent at this point. No acute intervention today - okay to resume diet. Continue supportive care, antibiotics and medical management per hospital medicine. will follow. Admission and Anticipated Discharge Date Admission Date: November 15, 2022 Subjective Patient seen and examined this morning, chart reviewed. Reports fever/chills this morning. Tmax 39.4. Reports some right flank discomfort and bladder discomfort. Urinary urgency, no dysuria or hematuria. PureWick in place and draining concentrated yellow urine. No nausea or vomiting. Review of Systems Constitutional: as per Subjective / HPI Gastrointestinal: as per Subjective / HPI Genitourinary: as per Subjective / HPI Physical Exam Physical Exam: General: No acute distress HEENT: Normocephalic, mucous membranes moist Pulmonary: Oxymask in place, no labored breathing Abdomen: Nondistended, soft, mild tenderness across lower abd/bladder Extremities: Moves all 4 spontaneously Neuro: No gross deficits Psych: alert and oriented, normal mood Skin: Slightly diaphoretic : Mild tenderness over right flank Results & Data Vital Signs (Past 12 Hours) Vital Signs Temp Pulse Resp BP Pulse Ox O2 Del Method O2 Flow Rate 11/16/22 08:38 37.6 C H 11/16/22 07:10 39.4 C H 94 H 24 117/68 94 Oxymask 2.5 11/16/22 03:52 36.6 C 71 16 91/55 L 95 Oxymask 3 11/16/22 01:34 37.3 C 77 16 94 Nasal Cannula 3 11/15/22 23:08 39.4 C H 144 H 22 146/69 H 85 L Room Air PG Care Time/CCT Total # of Minutes Spent Total Time Spent with Patient: Total time spent is greater than 50% in coordination of care (as documented) at patient's floor/unit and/or counseling patient: Coding Level of Care Code 95219 SUB INP/OBS CARE /25MIN Diagnoses Hydronephrosis, right N13.30 Complicated UTI (urinary tract infection) N39.0 Sepsis A41.9
[2022-11-16] MEDS: INSULIN ASPART PER UNIT CHARGE SC SCH ×4 (09:00→20:19)
[2022-11-16] MEDS ORDERED: VANCOMYCIN CONSULT ACTIVE PRN (09:09)
[2022-11-16] MEDS: AMPICILLIN 2,000 MG in SODIUM CHLOR 0.9% AD-VAN 100 ML IV SCH ×4 (09:46→23:03)
[2022-11-16] MEDS: ALBUMIN 25% 25 GM/100 ML VIAL IV SCH ×2 (12:19→20:23)
--- NOTE | 2022-11-16 14:03 | Electrocardiogram Report ---
Test Reason : Blood Pressure : / mmHG Vent. Rate : 083 BPM Atrial Rate : 083 BPM P-R Int : 080 ms QRS Dur : 074 ms QT Int : 396 ms P-R-T Axes : -05 -13 019 degrees QTc Int : 465 ms Sinus rhythm with short [place] T wave abnormality, consider anterior ischemia Abnormal ECG No previous ECGs available Confirmed by Stas Monte ([id number]) on 11/16/2022 2:02:54 PM Referred By: REFERRED SELF Confirmed By:Stas Monte
[2022-11-16] MEDS: KETOROLAC TROMETHAMINE 15 MG/ML VIAL IV PRN (14:43)
--- NOTE | 2022-11-16 15:00 | Hospitalist Progress Note ---
Date of Service November 16, 2022 Assessment & Plan (1) Sepsis: (2) Complicated UTI (urinary tract infection): (3) Hydronephrosis, right: (4) Hyperlipidemia: (5) GERD (gastroesophageal reflux disease): (6) Anxiety: (7) Diabetes mellitus, type 2: (8) Hypertension: Plan 72-year-old female with PMH of type 2 diabetes, dyslipidemia, hypothyroidism, depression, anxiety, recent urological intervention with stent placement and removal by Dr. Aviles at [facility] and other medical problems listed below who presents with fever, chills and R flank pain meeting criteria for severe sepsis 2/2 complicated UTI. She is being managed for the following: Complicated UTI/right pyelitis: Admitting CT abdomen pelvis suggestive of right hydronephrosis and pyelitis Severe sepsis POA: WBC/respiratory rate/pulse rate/temperature/lactate elevated at presentation GPC bacteremia: Blood culture 11/15 positive for GPC bacteremia Patient had recent right-sided urological stent removal followed by initiation of right-sided flank discomfort and temperature. Patient does report urinary frequency. Will get urine culture. Patient has a history of E. coli UTI multiple times in the past. Patient was started on cefepime 11/15, ampicillin added 11/16. Repeat blood culture 11/16, echo, ID consult, ampicillin 11/16 Urology on board, appreciate recommendation. Clinically, patient's temperature has been slightly better compared to overnight, patient still with chills. WBC trending down. Expect to improve with initiation of ampicillin by evening, if not improving, will switch to vancomycin. Blood pressure is soft, improving with antibiotic treatment, use IV albumin as pulmonary congestion on chest x-ray DM II: A1c 7.6 in September 2022. Hold home agents . SSI while in-patient . BSG AC HS HTN : Normotensive. Hold antihypertensive, currently low normal blood pressure and symptoms of infection. Resume when able HLD : Continue statin Anxiety, depression : Continue venlafaxine DVT Ppx: SCDS in anticipation of urological intervention Code status: FULL PCP: Kenan Dispo: Admitted to PCU for now Admission and Anticipated Discharge Date Admission Date: November 15, 2022 Subjective Patient seen and examined at bedside as a follow-up for GPC bacteremia, severe sepsis POA, complicated UTI/pyelitis on the background of recent urologic intervention. Patient was lying in bed, on 1 L oxygen via nasal cannula, NAD, reports having febrile episodes overnight requiring Tylenol, denies cough or chest pain or headache or dizziness. Patient does have right-sided abdominal pain and CVA angle tenderness on exam. Patient reports urinary urgency. Physical Exam Physical Exam: GENERAL: Alert and oriented x3. NAD, on 1 L oxygen via nasal cannula. HEENT: No pallor, no icterus. Pupils equal, round and reactive to light. Oral mucosa moist. NECK: No JVD, no neck masses. HEART: S1 and S2 heard. Regular rate and rhythm. No murmur, no gallop. RESPIRATORY SYSTEM: Normal AP diameter. No accessory muscle use. No wheezing, no crackles. ABDOMEN: Soft, bowel sounds present, right flank tenderness, no distention. CENTRAL NERVOUS SYSTEM: No facial droop. Speech is clear. Obeys simple commands. Moves extremities. EXTREMITIES: No edema, no erythema seen. CVA angle tenderness x right Results & Data Results & Data Vital Signs (Past 12 Hours) Vital Signs Temp Pulse Pulse Resp BP Pulse Ox O2 Del Method 11/16/22 14:40 37.7 C H 84 16 117/70 92 Nasal Cannula 11/16/22 13:49 36.9 C 11/16/22 13:33 36.9 C 73 16 94/57 L 91 Nasal Cannula 11/16/22 12:45 37.5 C 73 18 84/47 L 94 Nasal Cannula 11/16/22 12:17 37.3 C 69 16 92/51 L 96 Nasal Cannula 11/16/22 11:04 36.7 C 68 18 88/55 L 93 Nasal Cannula 11/16/22 07:15 71 11/16/22 07:15 Oxymask 11/16/22 08:38 37.6 C H 11/16/22 07:10 39.4 C H 94 H 24 117/68 94 Oxymask 11/16/22 03:52 36.6 C 71 16 91/55 L 95 Oxymask O2 Flow Rate 11/16/22 14:40 1 11/16/22 13:49 11/16/22 13:33 1 11/16/22 12:45 1 11/16/22 12:17 1 11/16/22 11:04 1.5 11/16/22 07:15 11/16/22 07:15 3 11/16/22 08:38 11/16/22 07:10 2.5 11/16/22 03:52 3
[2022-11-16] MEDS: ACETAMINOPHEN 325 MG TAB PO PRN ×2 (16:05→23:44)
[2022-11-16] MEDS: ATORVASTATIN 40 MG TAB PO SCH (20:25)
[2022-11-16] MEDS: oxyCODONE HCL IR 5 MG TAB (IMMEDIATE RELEASE) PO PRN (22:57)
[2022-11-16] MEDS ORDERED: oxyCODONE HCL IR 5 MG TAB (IMMEDIATE RELEASE) PO STA (23:58)
[2022-11-16] MEDS ORDERED: HYDROmorphone INJ 0.5 MG/0.5 ML SYR IV PRN (23:59)
[2022-11-17] MEDS: AMPICILLIN 2,000 MG in SODIUM CHLOR 0.9% AD-VAN 100 ML IV SCH ×6 (01:41→21:37)
[2022-11-17] MEDS: CEFEPIME 2,000 MG in SYRINGE 0 ML IV SCH (04:02)
[2022-11-17] MEDS: ALBUMIN 25% 25 GM/100 ML VIAL IV SCH (04:07)
[2022-11-17] MEDS: ACETAMINOPHEN 325 MG TAB PO PRN ×2 (07:06→11:27)
[2022-11-17 07:35] LABS: Hematocrit (blood only) 28.8 % (37.0-47.0); Mean Corpuscular Hemoglobin 26.1 pg (25.0-34.0); Mean Corpuscular Hgb Conc 31.3 g/dL (32.0-36.0); Mean Corpuscular Volume 83.5 fL (80.0-100.0); Mean Platelet Volume 10.7 fL (9.4-12.4); Platelet Count 144 K/uL (130-400); RDW Coefficient of Variation 16.7 % (11.5-14.5); RDW Standard Deviation 50.7 fL (36.4-46.3); Red Blood Count 3.45 M/uL (4.20-5.40); White Blood Count 7.84 K/ul (4.8-10.8)
--- NOTE | 2022-11-17 07:43 | Urology Progress Note ---
Date of Service November 17, 2022 Assessment & Plan (1) Hydronephrosis, right: (2) Complicated UTI (urinary tract infection): (3) Sepsis: Plan: Follow-up sepsis and bacteremia s/p stone removal at outside facility and subsequent stent removal Afebrile overnight, temp 37.8 at time of visit this am, hemodynamically stable Labs - creatinine 0.85, WBC 7.84, Hgb 9.0 Patient with chills/generalized achiness overnight/this am Blood cultures are showing gram positive cocci in chains PCR demonstrating Enterococcus On Cefepime, Ampicillin added on 11/16 ID consulted Will make NPO now, reassess later today for possible right stent placement Case reviewed and discussed with Dr. Otero Patient reassessed this afternoon. Subjectively feeling better. Remains afebrile. Will continue to monitor. Continue antibiotics and supportive care. Okay to resume diet this evening. Will make NPO at midnight to reassess for possible stent placement. will follow Admission and Anticipated Discharge Date Admission Date: November 15, 2022 Subjective Patient seen and examined at bedside this am, chart reviewed Reports chills this am as well as generalized achiness and headache Urinary urgency and incontinence Purewick with concentrated yellow urine No dysuria or hematuria Low appetite, no nausea or vomiting Review of Systems Constitutional: as per Subjective / HPI Gastrointestinal: as per Subjective / HPI Genitourinary: as per Subjective / HPI Physical Exam Physical Exam: General: No acute distress HEENT: Normocephalic, mucous membranes moist Pulmonary: supplemental O2 in place, no labored breathing Abdomen: Nondistended, soft, mild tenderness across lower abd/bladder Extremities: Moves all 4 spontaneously Neuro: No gross deficits Psych: alert and oriented, normal mood Skin: no visible rashes : Mild tenderness over right flank Results & Data Vital Signs (Past 12 Hours) Vital Signs Temp Pulse Pulse Resp BP Pulse Ox O2 Del Method 11/17/22 07:05 69 11/17/22 07:05 Nasal Cannula 11/17/22 07:02 37.8 C H 87 16 123/74 93 Nasal Cannula 11/17/22 03:38 37.3 C 66 16 104/62 93 Nasal Cannula 11/16/22 22:01 74 11/16/22 22:30 Nasal Cannula 11/16/22 22:56 36.7 C 92 H 20 155/76 H 93 Nasal Cannula O2 Flow Rate 11/17/22 07:05 11/17/22 07:05 3 11/17/22 07:02 3 11/17/22 03:38 3 11/16/22 22:01 11/16/22 22:30 3 11/16/22 22:56 3 PG Care Time/CCT Total # of Minutes Spent Total Time Spent with Patient: Total time spent is greater than 50% in coordination of care (as documented) at patient's floor/unit and/or counseling patient: Coding Level of Care Code 34469 SUB INP/OBS CARE 25MIN Diagnoses Hydronephrosis, right N13.30 Complicated UTI (urinary tract infection) N39.0 Sepsis A41.9
[2022-11-17 07:44] LABS: BUN Creatinine Ratio 14.1 (10-20); Calcium 8.4 mg/dl (8.6-10.3); Creatinine Clr Calc Pharmacy 60.3 ml/min; Est GFR (African American) 79.9 ml/min; Est GFR (Non-African American) 68.9 ml/min; Potassium 3.6 mmol/L (3.5-5.1)
[2022-11-17] MEDS: TAMSULOSIN HCL 0.4 MG CAP PO SCH (08:20)
[2022-11-17] MEDS: PANTOprazole 40 MG TAB PO SCH (08:20)
[2022-11-17] MEDS: ASPIRIN 81 MG ECTAB PO SCH (08:20)
[2022-11-17] MEDS: VENLAFAXINE HCL XR 75 MG CAPXR PO SCH (08:20)
[2022-11-17] MEDS: INSULIN ASPART PER UNIT CHARGE SC SCH ×4 (08:56→21:51)
[2022-11-17] MEDS ORDERED: POTASSIUM CHLORIDE CRTAB 20 MEQ TABCR PO STA (08:58)
[2022-11-17] MEDS: POT PHOSPHATE MONOBASIC W/ SOD TAB PO SCH ×4 (09:24→21:38)
[2022-11-17] MEDS: oxyCODONE HCL IR 5 MG TAB (IMMEDIATE RELEASE) PO PRN ×2 (11:06→17:24)
[2022-11-17] MEDS: ADVANCED PROBIOTIC 1250 MG CAPSULE PO SCH (13:11)
--- NOTE | 2022-11-17 15:48 | Hospitalist Progress Note ---
Date of Service November 17, 2022 Assessment & Plan (1) Sepsis: (2) Complicated UTI (urinary tract infection): (3) Hydronephrosis, right: (4) Hyperlipidemia: (5) GERD (gastroesophageal reflux disease): (6) Anxiety: (7) Diabetes mellitus, type 2: (8) Hypertension: Plan 72-year-old female with PMH of type 2 diabetes, dyslipidemia, hypothyroidism, depression, anxiety, recent urological intervention with stent placement and removal by Dr. Aviles at [facility] and other medical problems listed below who presents with fever, chills and R flank pain meeting criteria for severe sepsis 2/2 complicated UTI. She is being managed for the following: Complicated UTI/right pyelitis: Admitting CT abdomen pelvis suggestive of right hydronephrosis and pyelitis Severe sepsis POA: WBC/respiratory rate/pulse rate/temperature/lactate elevated at presentation GPC bacteremia: Blood culture 11/15 positive for GPC bacteremia Patient had recent right-sided urological stent removal followed by initiation of right-sided flank discomfort and temperature. Patient does report urinary frequency. Will get urine culture. Patient has a history of E. coli UTI multiple times in the past. Patient was started on cefepime 11/15, ampicillin added 11/16. - Cefepime stopped 11/17. If 11/16 Bl Cx is neg; 14 days ATB therapy (7 day iv ampi + 7 day amox). C/w probiotic. 11/17 ECHO w/ no vegetations. Repeat blood culture 11/16 - follow, if positive, repeat Cx again and reach out to ID. ID Evaled, appreciate recs. Urology on board, n.p.o. today for possible right stent placement. Clinically patient's temperature getting better. Patient reports feeling better. Patient reports improving right-sided flank pain. Blood pressure is improving, hemodynamically stable. DM II: A1c 7.6 in September 2022. Hold home agents . SSI while in-patient . BSG AC HS HTN : Normotensive. Resume home blood pressure medications as able. HLD : Continue statin Anxiety, depression : Continue venlafaxine DVT Ppx: SCDS in anticipation of urological intervention Code status: FULL PCP: Kenan Dispo: Admitted to PCU for now Admission and Anticipated Discharge Date Admission Date: November 15, 2022 Subjective Patient seen and examined at bedside as a follow-up for GPC bacteremia, severe sepsis POA, complicated UTI/pyelitis on the background of recent urologic intervention. Patient was lying in bed, on 3.5 L oxygen via nasal cannula, NAD, reports being able to sleep overnight due to uncomfortable bed, reports improving febrile episodes, denies cough or chest pain or dizziness. Patient reports improvement in ave right-sided abdominal pain and CVA angle tenderness on exam. Patient reports new onset headache from yesterday CT head. Physical Exam Physical Exam: GENERAL: Alert and oriented x3. NAD, on 3.5 L oxygen via nasal cannula. HEENT: No pallor, no icterus. Pupils equal, round and reactive to light. Oral mucosa moist. NECK: No JVD, no neck masses. HEART: S1 and S2 heard. Regular rate and rhythm. No murmur, no gallop. RESPIRATORY SYSTEM: Normal AP diameter. No accessory muscle use. No wheezing, bb rales ABDOMEN: Soft, bowel sounds present, right flank tenderness - improving, no distention. CENTRAL NERVOUS SYSTEM: No facial droop. Speech is clear. Obeys simple commands. Moves extremities. EXTREMITIES: No edema, no erythema seen. CVA angle tenderness x right, improving Results & Data Results & Data Vital Signs (Past 12 Hours) Vital Signs Temp Pulse Pulse Resp BP Pulse Ox O2 Del Method 11/17/22 13:15 37.5 C 11/17/22 10:01 37.8 C H 76 18 131/79 92 Nasal Cannula 11/17/22 07:22 37.3 C 87 21 152/75 H 90 Nasal Cannula 11/17/22 07:05 69 11/17/22 07:05 Nasal Cannula 11/17/22 08:20 37.5 C 11/17/22 07:02 37.8 C H 87 16 123/74 93 Nasal Cannula O2 Flow Rate 11/17/22 13:15 11/17/22 10:01 3 11/17/22 07:22 3 11/17/22 07:05 11/17/22 07:05 3 11/17/22 08:20 11/17/22 07:02 3
--- NOTE | 2022-11-17 17:24 | CT Scan Report ---
HEAD CT NONCONTRAST CT DOSE: 547.75 mGy.cm HISTORY: new Headache in bacteremic pt TECHNIQUE: Multiaxial CT images of the head were performed without the use of intravenous contrast. A utomated exposure control was utilized for this study. A dose lowering technique was utilized adheri ng to the principles of ALARA. Comparison: None. Findings: The paranasal sinuses and mastoid air cells are clear. The calvarium and skull base are int act. The ventricles and sulci are within normal limits. There is no mass, hematoma, midline shift, or acute infarct. Impression: No acute intracranial abnormality. ACT 112: Negative or not required by law. Electronically signed by: Mayito Eaton M.D. 11/17/2022 5:22 PM
[2022-11-17] MEDS: lisinopril 10 MG TAB PO SCH (21:38)
[2022-11-17] MEDS: ATORVASTATIN 40 MG TAB PO SCH (21:38)
[2022-11-18] MEDS: AMPICILLIN 2,000 MG in SODIUM CHLOR 0.9% AD-VAN 100 ML IV SCH ×6 (02:46→22:28)
[2022-11-18] MEDS: oxyCODONE HCL IR 5 MG TAB (IMMEDIATE RELEASE) PO PRN (05:48)
[2022-11-18 07:39] LABS: Hematocrit (blood only) 26.8 % (37.0-47.0); Hemoglobin 8.5 g/dl (12.0-16.0); Mean Corpuscular Hgb Conc 31.7 g/dL (32.0-36.0); Mean Platelet Volume 11.1 fL (9.4-12.4); Platelet Count 170 K/uL (130-400); RDW Coefficient of Variation 16.5 % (11.5-14.5); RDW Standard Deviation 49.9 fL (36.4-46.3); Red Blood Count 3.27 M/uL (4.20-5.40); White Blood Count 6.37 K/ul (4.8-10.8)
[2022-11-18 08:05] LABS: BUN Creatinine Ratio 13.8 (10-20); Creatinine Clr Calc Pharmacy 82.4 ml/min; Est GFR (African American) 103.5 ml/min; Est GFR (Non-African American) 89.3 ml/min; Magnesium 1.8 mg/dl (1.7-2.4); Potassium 3.2 mmol/L (3.5-5.1)
[2022-11-18] MEDS: VENLAFAXINE HCL XR 75 MG CAPXR PO SCH (08:27)
[2022-11-18] MEDS: PANTOprazole 40 MG TAB PO SCH (08:27)
[2022-11-18] MEDS: TAMSULOSIN HCL 0.4 MG CAP PO SCH (08:27)
[2022-11-18] MEDS: ASPIRIN 81 MG ECTAB PO SCH (08:27)
[2022-11-18] MEDS: ADVANCED PROBIOTIC 1250 MG CAPSULE PO SCH (08:27)
[2022-11-18] MEDS: INSULIN ASPART PER UNIT CHARGE SC SCH ×4 (08:29→20:16)
[2022-11-18] MEDS ORDERED: POTASSIUM CHLORIDE CRTAB 20 MEQ TABCR PO STA (08:34)
[2022-11-18] MEDS ORDERED: POTASSIUM PHOS 3 MMOL/1 ML INFUSION IV STA (08:34)
[2022-11-18] MEDS ORDERED: POTASSIUM PHOSPHATE 15 MMOL in SODIUM CHLORIDE 0.9% 250 ML IV ONE (08:45)
--- NOTE | 2022-11-18 08:50 | Urology Progress Note ---
Date of Service November 18, 2022 Assessment & Plan (1) Hydronephrosis, right: (2) Complicated UTI (urinary tract infection): (3) Sepsis: Plan: Follow-up sepsis and bacteremia s/p stone removal at outside facility and subsequent stent removal Afebrile overnight, hemodynamically stable Labs - creatinine 0.65, no leukocytosis Patient subjectively feeling much better this morning Blood cultures 11/15 probable Enterococcus Repeat BCx 11/16 showing no growth x 24 hours UC 11/16 showing no growth Treated initially with Cefepime, now on Ampicillin since 11/16 ID consulted Given her overall improvement, will avoid right ureteral stent placement - okay for patient to have diet today Continue supportive care and antibiotics per hospital medicine Patient can f/u with her established urologist after discharge will follow peripherally, contact us with any further questions or concerns Admission and Anticipated Discharge Date Admission Date: November 15, 2022 Supervising Physician Co-Signing Physician Notes Given that patient has been afebrile for over 24 and hours now and is several days out from stent removal, agree with continued conservative management with antibiotics. No indication to replace stent at this time. Subjective Patient seen and examined at bedside this morning with Dr. Bateman, chart reviewed Patient subjectively feeling much better this morning Flank pain improving Voiding spontaneously and via Purewick Denies fever/chills Review of Systems Constitutional: as per Subjective / HPI Gastrointestinal: as per Subjective / HPI Genitourinary: as per Subjective / HPI Physical Exam Constitutional: well developed and well nourished; no acute distress Respiratory: no respiratory distress and no labored breathing supplemental oxygen Gastrointestinal (Abdomen): Inspection/Auscultation: abdomen normal to inspection; abdomen not distended Psychiatric: Orientation: alert and oriented x 3 Results & Data Vital Signs (Past 12 Hours) Vital Signs Temp Pulse Pulse Resp BP Pulse Ox O2 Del Method 11/18/22 08:30 37.1 C 11/18/22 07:50 76 20 149/61 H 92 Nasal Cannula 11/18/22 07:15 78 11/18/22 07:15 Nasal Cannula 11/17/22 22:00 81 11/18/22 03:03 37.0 C 83 18 151/74 H 90 Room Air, Nasal Cannula 11/17/22 23:18 37.3 C 79 18 137/67 93 Nasal Cannula 08/15/23 22:06 Nasal Cannula O2 Flow Rate 08/16/23 08:30 11/18/22 07:50 3 11/18/22 07:15 11/18/22 07:15 3 11/17/22 22:00 11/18/22 03:03 2 11/17/22 23:18 3 11/17/22 22:06 3 PG Care Time/CCT Total # of Minutes Spent Total Time Spent with Patient: Total time spent is greater than 50% in coordination of care (as documented) at patient's floor/unit and/or counseling patient: Coding Level of Care Code 27791 SUB INP/OBS CARE 04/29MIN Diagnoses Hydronephrosis, right N13.30 Complicated UTI (urinary tract infection) N39.0 Sepsis A41.9
[2022-11-18] MEDS ORDERED: FUROSEMIDE INJ 20 MG/2 ML VIAL IV ONE (10:18)
[2022-11-18 14:58] LABS: Hematocrit (blood only) 26.7 % (37.0-47.0); Hemoglobin 8.7 g/dl (12.0-16.0)
--- NOTE | 2022-11-18 15:27 | Hospitalist Progress Note ---
Date of Service November 18, 2022 Assessment & Plan (1) Sepsis: (2) Complicated UTI (urinary tract infection): (3) Hydronephrosis, right: (4) Hyperlipidemia: (5) GERD (gastroesophageal reflux disease): (6) Anxiety: (7) Diabetes mellitus, type 2: (8) Hypertension: Plan 72-year-old female with PMH of type 2 diabetes, dyslipidemia, hypothyroidism, depression, anxiety, recent urological intervention with stent placement and removal by Dr. Aviles at [facility] and other medical problems listed below who presents with fever, chills and R flank pain meeting criteria for severe sepsis 2/2 complicated UTI. She is being managed for the following: Complicated UTI/right pyelitis: Admitting CT abdomen pelvis suggestive of right hydronephrosis and pyelitis Severe sepsis POA: WBC/respiratory rate/pulse rate/temperature/lactate elevated at presentation GPC bacteremia: Blood culture 11/15 positive for GPC bacteremia Patient had recent right-sided urological stent removal followed by initiation of right-sided flank discomfort and temperature. Patient does report urinary frequency. Will get urine culture. Patient has a history of E. coli UTI multiple times in the past. Patient was started on cefepime 11/15, ampicillin added 11/16. - Cefepime stopped 11/17. If 11/16 Bl Cx is neg; 14 days ATB therapy (7 day iv ampi + 7 day amox). C/w probiotic. 11/17 ECHO w/ no vegetations. Repeat blood culture 11/16 - follow, if positive, repeat Cx again and reach out to ID. ID Evaled, appreciate recs. Urology on board, since patient has remarkable clinical improvement no plan for stent placement for now. Clinically patient has been afebrile. Patient reports feeling better. Patient reports improving right-sided flank pain. Patient has been hemodynamically stable. Resume home blood pressure medications. DM II: A1c 7.6 in September 2022. Hold home agents . SSI while in-patient . BSG AC HS HTN : Normotensive. Resume home blood pressure medications. HLD : Continue statin Anxiety, depression : Continue venlafaxine DVT Ppx: SCDS, ambulation. Code status: FULL PCP: Kenan Dispo: Admitted to PCU for now. PT/OT, CM to assist with DC planning. Admission and Anticipated Discharge Date Admission Date: November 15, 2022 Subjective Patient seen and examined at bedside as a follow-up for GPC bacteremia, severe sepsis POA, complicated UTI/pyelitis on the background of recent urologic intervention. Patient was lying in bed, on 3 L oxygen via nasal cannula, NAD, reports feeling better, reports appetite at baseline, has been afebrile. Denies cough or chest pain or dizziness. Patient reports improvement in her right-sided abdominal pain and CVA angle tenderness on exam. Does not report headache today. Physical Exam Physical Exam: GENERAL: Alert and oriented x3. NAD, on 3 L oxygen via nasal cannula. HEENT: No pallor, no icterus. Pupils equal, round and reactive to light. Oral mucosa moist. NECK: No JVD, no neck masses. HEART: S1 and S2 heard. Regular rate and rhythm. No murmur, no gallop. RESPIRATORY SYSTEM: Normal AP diameter. No accessory muscle use. No wheezing, bb rales ABDOMEN: Soft, bowel sounds present, right flank tenderness - improving, no distention. CENTRAL NERVOUS SYSTEM: No facial droop. Speech is clear. Obeys simple commands. Moves extremities. EXTREMITIES: No edema, no erythema seen. CVA angle tenderness x right, improving Results & Data Results & Data Vital Signs (Past 12 Hours) Vital Signs Temp Pulse Pulse Resp BP Pulse Ox O2 Del Method 11/18/22 11:28 36.6 C 76 18 161/89 H 93 Nasal Cannula 11/18/22 08:30 37.1 C 11/18/22 07:50 76 20 149/61 H 92 Nasal Cannula 11/18/22 07:15 78 11/18/22 07:15 Nasal Cannula O2 Flow Rate 11/18/22 11:28 3 11/18/22 08:30 11/18/22 07:50 3 11/18/22 07:15 11/18/22 07:15 3
[2022-11-18] MEDS: ATORVASTATIN 40 MG TAB PO SCH (20:16)
[2022-11-18] MEDS: lisinopril 10 MG TAB PO SCH (20:16)
[2022-11-18] MEDS: ACETAMINOPHEN 325 MG TAB PO PRN (20:20)
[2022-11-19] MEDS: AMPICILLIN 2,000 MG in SODIUM CHLOR 0.9% AD-VAN 100 ML IV SCH ×6 (02:33→22:23)
[2022-11-19] MEDS: INSULIN ASPART PER UNIT CHARGE SC SCH ×4 (08:32→21:27)
[2022-11-19] MEDS: ASPIRIN 81 MG ECTAB PO SCH (08:33)
[2022-11-19] MEDS: PANTOprazole 40 MG TAB PO SCH (08:34)
[2022-11-19] MEDS: ADVANCED PROBIOTIC 1250 MG CAPSULE PO SCH (08:34)
[2022-11-19] MEDS: TAMSULOSIN HCL 0.4 MG CAP PO SCH (08:35)
[2022-11-19] MEDS: VENLAFAXINE HCL XR 75 MG CAPXR PO SCH (08:35)
[2022-11-19 08:39] LABS: Hematocrit (blood only) 29.2 % (37.0-47.0); Hemoglobin 9.5 g/dl (12.0-16.0); Mean Corpuscular Hgb Conc 32.5 g/dL (32.0-36.0); Mean Platelet Volume 10.4 fL (9.4-12.4); Platelet Count 231 K/uL (130-400); RDW Coefficient of Variation 16.2 % (11.5-14.5); RDW Standard Deviation 47.3 fL (36.4-46.3); Red Blood Count 3.65 M/uL (4.20-5.40); White Blood Count 6.48 K/ul (4.8-10.8)
[2022-11-19 08:58] LABS: BUN Creatinine Ratio 16.7 (10-20); Calcium 8.4 mg/dl (8.6-10.3); Creatinine Clr Calc Pharmacy 97.9 ml/min; Est GFR (Non-African American) 94.9 ml/min; Magnesium 1.8 mg/dl (1.7-2.4); Phosphorus 1.7 mg/dl (2.5-4.9); Potassium 3.2 mmol/L (3.5-5.1)
[2022-11-19] MEDS ORDERED: POTASSIUM PHOS 3 MMOL/1 ML INFUSION IV STA (09:19)
[2022-11-19] MEDS ORDERED: POTASSIUM PHOSPHATE 15 MMOL in SODIUM CHLORIDE 0.9% 250 ML IV ONE (09:30)
[2022-11-19] MEDS: POTASSIUM CHLORIDE CRTAB 20 MEQ TABCR PO SCH ×2 (09:32→14:05)
[2022-11-19] MEDS ORDERED: FUROSEMIDE INJ 20 MG/2 ML VIAL IV ONE ×3 (09:48→13:34)
[2022-11-19] MEDS ORDERED: POTASSIUM CHLORIDE CRTAB 20 MEQ TABCR PO SCH (11:30)
--- NOTE | 2022-11-19 16:02 | Hospitalist Progress Note ---
Date of Service November 19, 2022 Assessment & Plan (1) Sepsis: (2) Complicated UTI (urinary tract infection): (3) Hydronephrosis, right: (4) Hyperlipidemia: (5) GERD (gastroesophageal reflux disease): (6) Anxiety: (7) Diabetes mellitus, type 2: (8) Hypertension: Plan 72-year-old female with PMH of type 2 diabetes, dyslipidemia, hypothyroidism, depression, anxiety, recent urological intervention with stent placement and removal by Dr. Aviles at [facility] and other medical problems listed below who presents with fever, chills and R flank pain meeting criteria for severe sepsis 2/2 complicated UTI. She is being managed for the following: Complicated UTI/right pyelitis: Admitting CT abdomen pelvis suggestive of right hydronephrosis and pyelitis Severe sepsis POA: WBC/respiratory rate/pulse rate/temperature/lactate elevated at presentation GPC bacteremia: Blood culture 11/15 positive for GPC bacteremia Patient had recent right-sided urological stent removal followed by initiation of right-sided flank discomfort and temperature. Patient does report urinary frequency. Will get urine culture. Patient has a history of E. coli UTI multiple times in the past. Patient was started on cefepime 11/15, ampicillin added 11/16. - Cefepime stopped 11/17. If 11/16 Bl Cx is neg; 14 days ATB therapy (7 day iv ampi + 7 day amox). C/w probiotic. 11/17 ECHO w/ no vegetations. Repeat blood culture 11/16 - follow, if positive, repeat Cx again and reach out to ID. ID Evaled, appreciate recs. Urology on board, since patient has remarkable clinical improvement no plan for stent placement for now. Clinically patient has been afebrile. Patient reports feeling better. Patient has been hemodynamically stable. Resumed home blood pressure medications. DM II: A1c 7.6 in September 2022. Hold home agents . SSI while in-patient . BSG AC HS HTN : Normotensive. Resume home blood pressure medications. HLD : Continue statin Anxiety, depression : Continue venlafaxine DVT Ppx: SCDS, ambulation. Code status: FULL PCP: Kenan Dispo: Admitted to PCU for now. PT/OT, CM to assist with DC planning. Admission and Anticipated Discharge Date Admission Date: November 15, 2022 Subjective Patient seen and examined at bedside as a follow-up for GPC bacteremia, severe sepsis POA, complicated UTI/pyelitis on the background of recent urologic intervention. Patient was lying in bed, on 2 L oxygen via nasal cannula, NAD, reports feeling better, reports appetite at baseline, has been afebrile. Denies cough or chest pain or dizziness. Patient reports improvement in her right-sided abdominal pain and CVA angle tenderness on exam. Physical Exam Physical Exam: GENERAL: Alert and oriented x3. NAD, on 2 L oxygen via nasal cannula. HEENT: No pallor, no icterus. Pupils equal, round and reactive to light. Oral mucosa moist. NECK: No JVD, no neck masses. HEART: S1 and S2 heard. Regular rate and rhythm. No murmur, no gallop. RESPIRATORY SYSTEM: Normal AP diameter. No accessory muscle use. No wheezing, bb rales ABDOMEN: Soft, bowel sounds present, right flank tenderness - resolved, no distention. CENTRAL NERVOUS SYSTEM: No facial droop. Speech is clear. Obeys simple commands. Moves extremities. EXTREMITIES: No edema, no erythema seen. CVA angle tenderness x right, resolved Results & Data Results & Data Vital Signs (Past 12 Hours) Vital Signs Temp Pulse Pulse Resp BP Pulse Ox O2 Del Method 11/19/22 08:00 75 11/19/22 11:42 36.8 C 76 20 136/84 92 Room Air 11/19/22 08:37 Nasal Cannula 11/19/22 08:04 36.8 C 75 18 172/74 H 92 Nasal Cannula O2 Flow Rate 11/19/22 08:00 11/19/22 11:42 11/19/22 08:37 2 11/19/22 08:04 1
[2022-11-19] MEDS: ATORVASTATIN 40 MG TAB PO SCH (21:16)
[2022-11-19] MEDS: lisinopril 10 MG TAB PO SCH (21:16)
[2022-11-20] MEDS: AMPICILLIN 2,000 MG in 0.9 % SODIUM CHLORIDE 100 ML IV SCH ×6 (02:36→21:06)
[2022-11-20] MEDS: ACETAMINOPHEN 325 MG TAB PO PRN ×2 (02:38→20:49)
[2022-11-20 08:07] LABS: Hematocrit (blood only) 28.8 % (37.0-47.0); Hemoglobin 9.4 g/dl (12.0-16.0); Mean Corpuscular Hgb Conc 32.6 g/dL (32.0-36.0); Mean Corpuscular Volume 79.6 fL (80.0-100.0); Mean Platelet Volume 10.4 fL (9.4-12.4); Platelet Count 286 K/uL (130-400); RDW Coefficient of Variation 16.1 % (11.5-14.5); RDW Standard Deviation 46.7 fL (36.4-46.3); Red Blood Count 3.62 M/uL (4.20-5.40); White Blood Count 5.94 K/ul (4.8-10.8)
[2022-11-20] MEDS: INSULIN ASPART PER UNIT CHARGE SC SCH ×4 (08:49→20:49)
[2022-11-20] MEDS: PANTOprazole 40 MG TAB PO SCH (08:50)
[2022-11-20] MEDS: VENLAFAXINE HCL XR 75 MG CAPXR PO SCH (08:50)
[2022-11-20] MEDS: ASPIRIN 81 MG ECTAB PO SCH (08:50)
[2022-11-20] MEDS: ADVANCED PROBIOTIC 1250 MG CAPSULE PO SCH (08:50)
[2022-11-20] MEDS: TAMSULOSIN HCL 0.4 MG CAP PO SCH (08:50)
[2022-11-20 09:03] LABS: BUN Creatinine Ratio 12.9 (10-20); Calcium 8.1 mg/dl (8.6-10.3); Creatinine Clr Calc Pharmacy 85.3 ml/min; Est GFR (African American) 105.1 ml/min; Est GFR (Non-African American) 90.7 ml/min; Magnesium 1.7 mg/dl (1.7-2.4); Phosphorus 2.6 mg/dl (2.5-4.9); Potassium 3.3 mmol/L (3.5-5.1)
[2022-11-20] MEDS ORDERED: POTASSIUM CHLORIDE CRTAB 20 MEQ TABCR PO STA (17:00)
--- NOTE | 2022-11-20 18:39 | Hospitalist Progress Note ---
Date of Service November 20, 2022 Assessment & Plan (1) Sepsis: (2) Complicated UTI (urinary tract infection): (3) Hydronephrosis, right: (4) Hyperlipidemia: (5) GERD (gastroesophageal reflux disease): (6) Anxiety: (7) Diabetes mellitus, type 2: (8) Hypertension: Plan 72-year-old female with PMH of type 2 diabetes, dyslipidemia, hypothyroidism, depression, anxiety, recent urological intervention with stent placement and removal by Dr. Aviles at [facility] and other medical problems listed below who presented with fever, chills and R flank pain meeting criteria for severe sepsis 2/2 complicated UTI. She is being managed for the following: Complicated UTI/right pyelitis: Admitting CT abdomen pelvis suggestive of right hydronephrosis and pyelitis Severe sepsis POA: WBC/respiratory rate/pulse rate/temperature/lactate elevated at presentation GPC bacteremia: Blood culture 11/15 positive for GPC bacteremia Patient had recent right-sided urological stent removal followed by initiation of right-sided flank discomfort and temperature. Patient does report urinary frequency. Urine culture-NGTD. Patient has a history of E. coli UTI multiple times in the past. Patient was started on cefepime 11/15, ampicillin added 11/16. - Cefepime stopped 11/17. Blood Cx NGTD- 14 days ATB therapy (7 day iv ampi + 7 day amox). C/w probiotic. Currently Day #5 11/17 ECHO w/ no vegetations. Repeat blood culture 11/16 -currently NGTD. ID Eval-, appreciate recs. Urology on board, since patient has remarkable clinical improvement no plan for stent placement for now. Anemia Appears microcytic Iron panel ordered with AM labs. DM II: A1c 7.6 in September 2022. Hold home agents . SSI while in-patient . BSG AC HS HTN : Continue home blood pressure medications. HLD : Continue statin Anxiety, depression : Continue venlafaxine DVT Ppx: SCDS, ambulation. Code status: FULL PCP: Kenan Dispo: Admitted to PCU for now. PT/OT, CM to assist with DC planning. Admission and Anticipated Discharge Date Admission Date: November 15, 2022 Subjective Pt seen today. States that her appetite is decreased but trying to eat. Denies any other acute concerns. Review of Systems Review of Systems: All systems reviewed & are unremarkable except as noted in Subjective Physical Exam Physical Exam: General: Alert, oriented. No acute distress Skin: No noted rashes or bruises Psych: Appropriate mood and affect Neuro: No gross deficits HEENT: NC/AT CV: RRR, Resp: Breath sounds clear bilaterally, no increased effort of breathing. No crackles/rhonchi/rales. Abdomen: Soft, nontender, nondistended. No guarding. No organomegaly appreciated. Extremities: No edema in lower extremities bilaterally. Results & Data Results & Data Vital Signs (Past 12 Hours) Vital Signs Temp Pulse Resp BP Pulse Ox O2 Del Method 11/20/22 14:00 36.7 C 11/20/22 13:59 89 16 143/80 H 96 Room Air 11/20/22 07:35 36.9 C 68 16 165/79 H 94 Room Air
[2022-11-20] MEDS: lisinopril 10 MG TAB PO SCH (20:49)
[2022-11-20] MEDS: ATORVASTATIN 40 MG TAB PO SCH (20:49)
[2022-11-21] MEDS: AMPICILLIN 2,000 MG in 0.9 % SODIUM CHLORIDE 100 ML IV SCH ×6 (02:20→21:00)
[2022-11-21] MEDS: TAMSULOSIN HCL 0.4 MG CAP PO SCH (08:35)
[2022-11-21] MEDS: ASPIRIN 81 MG ECTAB PO SCH (08:35)
[2022-11-21] MEDS: ADVANCED PROBIOTIC 1250 MG CAPSULE PO SCH (08:35)
[2022-11-21] MEDS: PANTOprazole 40 MG TAB PO SCH (08:35)
[2022-11-21] MEDS: VENLAFAXINE HCL XR 75 MG CAPXR PO SCH (08:35)
[2022-11-21] MEDS: INSULIN ASPART PER UNIT CHARGE SC SCH ×4 (08:45→21:01)
[2022-11-21 10:43] LABS: Calcium 8.9 mg/dl (8.6-10.3); Creatinine Clr Calc Pharmacy 70.5 ml/min; Est GFR (African American) 92.9 ml/min; Est GFR (Non-African American) 80.2 ml/min; Potassium 3.7 mmol/L (3.5-5.1)
[2022-11-21 10:45] LABS: Basophils # (auto) 0.05 K/uL (0-0.2); Basophils % (auto) 0.7 %; Eosinophils # (auto) 0.66 K/uL (0-0.50); Eosinophils % (auto) 8.9 %; Hematocrit (blood only) 29.7 % (37.0-47.0); Hemoglobin 9.6 g/dl (12.0-16.0); Immature Granulocytes # (auto) 0.04 K/uL (0.01-0.20); Immature Granulocytes % (auto) 0.5 %; Lymphocytes # (auto) 0.85 K/uL (1.2-3.4); Lymphocytes % (auto) 11.5 %; Mean Corpuscular Hemoglobin 26.4 pg (25.0-34.0); Mean Corpuscular Hgb Conc 32.3 g/dL (32.0-36.0); Mean Corpuscular Volume 81.6 fL (80.0-100.0); Mean Platelet Volume 10.2 fL (9.4-12.4); Monocytes # (auto) 0.53 K/uL (0.11-0.59); Monocytes % (auto) 7.1 %; Neutrophils # (auto) 5.29 K/uL (1.40-6.50); Neutrophils % (auto) 71.3 %; Platelet Count 353 K/uL (130-400); RDW Coefficient of Variation 16.4 % (11.5-14.5); RDW Standard Deviation 49.4 fL (36.4-46.3); Red Blood Count 3.64 M/uL (4.20-5.40); White Blood Count 7.42 K/ul (4.8-10.8)
[2022-11-21 11:01] LABS: Ferritin 103.3 ng/ml (8-388)
--- NOTE | 2022-11-21 16:29 | Hospitalist Progress Note ---
Date of Service November 21, 2022 Assessment & Plan (1) Sepsis: (2) Complicated UTI (urinary tract infection): (3) Hydronephrosis, right: (4) Hyperlipidemia: (5) GERD (gastroesophageal reflux disease): (6) Anxiety: (7) Diabetes mellitus, type 2: (8) Hypertension: Plan 72-year-old female with PMH of type 2 diabetes, dyslipidemia, hypothyroidism, depression, anxiety, recent urological intervention with stent placement and removal by Dr. Aviles at [facility] and other medical problems listed below who presented with fever, chills and R flank pain meeting criteria for severe sepsis 2/2 complicated UTI. Currently on Day 6 of IV abx. She is being managed for the following: Complicated UTI/right pyelitis: Admitting CT abdomen pelvis suggestive of right hydronephrosis and pyelitis Severe sepsis POA: WBC/respiratory rate/pulse rate/temperature/lactate elevated at presentation GPC bacteremia: Blood culture 11/15 positive for GPC bacteremia Patient had recent right-sided urological stent removal followed by initiation of right-sided flank discomfort and temperature. Patient does report urinary frequency. Urine culture-NGTD. Patient has a history of E. coli UTI multiple times in the past. Patient was started on cefepime 11/15, ampicillin added 11/16. - Cefepime stopped 11/17. Blood Cx NGTD- 14 days ATB therapy (7 day iv ampi + 7 day amox). C/w probiotic. Currently Day #6 11/17 ECHO w/ no vegetations. Repeat blood culture 11/16 -currently NGTD. ID Eval-, appreciate recs. Urology consulted- since patient has remarkable clinical improvement no plan for stent placement for now. Anemia Appears microcytic Iron panel with low iron Supplemental iron ordered. DM II: A1c 7.6 in September 2022. Hold home agents . SSI while in-patient . BSG AC HS HTN : Continue home blood pressure medications. HLD : Continue statin Anxiety, depression : Continue venlafaxine DVT Ppx: SCDS, ambulation, due to anemia. Code status: FULL PCP: Kenan Dispo: Admitted to PCU for now. PT/OT, CM to assist with DC planning. Admission and Anticipated Discharge Date Admission Date: November 15, 2022 Subjective Pt seen today. States that her appetite is improving. Ate most of her breakfast. Denies any other acute concerns. Review of Systems Review of Systems: All systems reviewed & are unremarkable except as noted in Subjective Physical Exam Physical Exam: General: Alert, oriented. No acute distress Skin: No noted rashes or bruises Psych: Appropriate mood and affect Neuro: No gross deficits HEENT: NC/AT CV: RRR, Resp: Breath sounds clear bilaterally, no increased effort of breathing. No crackles/rhonchi/rales. Abdomen: Soft, mild abdominal tenderness, nondistended. Extremities: No edema in lower extremities bilaterally. Results & Data Results & Data Vital Signs (Past 12 Hours) Vital Signs Temp Pulse Resp BP Pulse Ox O2 Del Method 11/21/22 14:51 37.2 C 69 16 143/73 H 95 Room Air 11/21/22 05:24 36.8 C 72 16 164/80 H 92 Room Air
[2022-11-21] MEDS: ACETAMINOPHEN 325 MG TAB PO PRN ×2 (16:45→20:59)
[2022-11-21] MEDS: FERROUS SULFATE 325 MG TAB PO SCH (17:41)
[2022-11-21] MEDS: ATORVASTATIN 40 MG TAB PO SCH (20:59)
[2022-11-21] MEDS: lisinopril 10 MG TAB PO SCH (20:59)
[2022-11-22] MEDS: AMPICILLIN 2,000 MG in 0.9 % SODIUM CHLORIDE 100 ML IV SCH ×6 (01:20→20:33)
[2022-11-22] MEDS: oxyCODONE HCL IR 5 MG TAB (IMMEDIATE RELEASE) PO PRN ×3 (01:22→09:11)
[2022-11-22] MEDS: ACETAMINOPHEN 325 MG TAB PO PRN ×5 (04:11→22:02)
[2022-11-22] MEDS ORDERED: PSEUDOEPHEDRINE HCL 30 MG TAB PO STA (04:30)
[2022-11-22] MEDS: ASPIRIN 81 MG ECTAB PO SCH (07:35)
[2022-11-22] MEDS: ADVANCED PROBIOTIC 1250 MG CAPSULE PO SCH (07:35)
[2022-11-22] MEDS: PANTOprazole 40 MG TAB PO SCH (07:35)
[2022-11-22] MEDS: TAMSULOSIN HCL 0.4 MG CAP PO SCH (07:36)
[2022-11-22] MEDS: VENLAFAXINE HCL XR 75 MG CAPXR PO SCH (07:36)
[2022-11-22 07:39] LABS: Basophils # (auto) 0.05 K/uL (0-0.2); Basophils % (auto) 0.6 %; Eosinophils # (auto) 0.78 K/uL (0-0.50); Eosinophils % (auto) 8.9 %; Hematocrit (blood only) 28.5 % (37.0-47.0); Hemoglobin 9.4 g/dl (12.0-16.0); Immature Granulocytes # (auto) 0.08 K/uL (0.01-0.20); Immature Granulocytes % (auto) 0.9 %; Lymphocytes # (auto) 1.84 K/uL (1.2-3.4); Mean Corpuscular Hemoglobin 26.4 pg (25.0-34.0); Mean Corpuscular Volume 80.1 fL (80.0-100.0); Mean Platelet Volume 10.1 fL (9.4-12.4); Monocytes # (auto) 0.84 K/uL (0.11-0.59); Monocytes % (auto) 9.6 %; Neutrophils # (auto) 5.17 K/uL (1.40-6.50); Platelet Count 342 K/uL (130-400); RDW Coefficient of Variation 16.5 % (11.5-14.5); RDW Standard Deviation 47.9 fL (36.4-46.3); Red Blood Count 3.56 M/uL (4.20-5.40); White Blood Count 8.76 K/ul (4.8-10.8)
[2022-11-22 07:51] LABS: BUN Creatinine Ratio 18.6 (10-20); Calcium 9.1 mg/dl (8.6-10.3); Creatinine Clr Calc Pharmacy 89.6 ml/min; Est GFR (African American) 106.9 ml/min; Est GFR (Non-African American) 92.2 ml/min; Potassium 3.5 mmol/L (3.5-5.1)
[2022-11-22] MEDS: FERROUS SULFATE 325 MG TAB PO SCH (08:02)
[2022-11-22] MEDS: INSULIN ASPART PER UNIT CHARGE SC SCH ×4 (08:06→20:32)
--- NOTE | 2022-11-22 15:48 | Hospitalist Progress Note ---
Date of Service November 22, 2022 Assessment & Plan (1) Sepsis: (2) Complicated UTI (urinary tract infection): (3) Hydronephrosis, right: (4) Hyperlipidemia: (5) GERD (gastroesophageal reflux disease): (6) Anxiety: (7) Diabetes mellitus, type 2: (8) Hypertension: Plan 72-year-old female with PMH of type 2 diabetes, dyslipidemia, hypothyroidism, depression, anxiety, recent urological intervention with stent placement and removal by Dr. Aviles at [facility] and other medical problems listed below who presented with fever, chills and R flank pain meeting criteria for severe sepsis 2/2 complicated UTI. Currently on Day 7 of IV abx. She is being managed for the following: Complicated UTI/right pyelitis: Admitting CT abdomen pelvis suggestive of right hydronephrosis and pyelitis Severe sepsis POA: WBC/respiratory rate/pulse rate/temperature/lactate elevated at presentation GPC bacteremia: Blood culture 11/15 positive for GPC bacteremia Patient had recent right-sided urological stent removal followed by initiation of right-sided flank discomfort and temperature. Patient does report urinary frequency. Urine culture-NGTD. Patient has a history of E. coli UTI multiple times in the past. Patient was started on cefepime 11/15, ampicillin added 11/16. - Cefepime stopped 11/17. Repeat Blood Cx 11/16 with NGTD- ID recommended 14 days of Antibiotic therapy (7 day iv ampi + 7 day amox). C/w probiotic. Currently Day #7 of IV abx. Consider switching to PO amoxicillin tomorrow with discharge home. 11/17 ECHO w/ no vegetations. ID Eval-, appreciate recs. Urology consulted- since patient has remarkable clinical improvement no plan for stent placement for now. Anemia Appears microcytic Iron panel with low iron Supplemental iron ordered. DM II: A1c 7.6 in September 2022. Hold home agents . SSI while in-patient . BSG AC HS HTN : Continue home blood pressure medications. HLD : Continue statin Anxiety, depression : Continue venlafaxine DVT Ppx: SCDS, ambulation, due to anemia. Code status: FULL PCP: Kenan Dispo: Admitted to PCU for now. PT/OT, CM to assist with DC planning. Admission and Anticipated Discharge Date Admission Date: November 15, 2022 Subjective Pt seen today. States that she had a headache overnight, thought it might be sinus related. Got sudafed and tylenol which helped. No acute concerns. Review of Systems Review of Systems: All systems reviewed & are unremarkable except as noted in Subjective Physical Exam Physical Exam: General: Alert, oriented. No acute distress Skin: No noted rashes or bruises Psych: Appropriate mood and affect Neuro: No gross deficits HEENT: NC/AT CV: RRR, Resp: Breath sounds clear bilaterally, no increased effort of breathing. No crackles/rhonchi/rales. Abdomen: Soft, mild abdominal tenderness, nondistended. Extremities: No edema in lower extremities bilaterally. Results & Data Results & Data Vital Signs (Past 12 Hours) Vital Signs Temp Pulse Resp BP BP Pulse Ox O2 Del Method 11/22/22 14:32 36.8 C 64 16 149/72 H 96 Room Air 11/22/22 07:33 36.6 C 60 16 176/79 H 94 Room Air
[2022-11-22] MEDS ORDERED: AZELASTINE HCL 0.1% NASAL 200 SPRAYS/27,400 MCG BTL PRN (17:29)
[2022-11-22] MEDS: ATORVASTATIN 40 MG TAB PO SCH (20:32)
[2022-11-22] MEDS: lisinopril 10 MG TAB PO SCH (20:32)
[2022-11-22] MEDS: guaiFENesin 600 MG TABCR PO PRN (22:03)
[2022-11-23] MEDS: AMPICILLIN 2,000 MG in 0.9 % SODIUM CHLORIDE 100 ML IV SCH ×2 (02:24→05:29)
[2022-11-23 07:41] LABS: Basophils # (auto) 0.04 K/uL (0-0.2); Basophils % (auto) 0.5 %; Eosinophils % (auto) 8.1 %; Hematocrit (blood only) 28.7 % (37.0-47.0); Hemoglobin 9.3 g/dl (12.0-16.0); Immature Granulocytes # (auto) 0.05 K/uL (0.01-0.20); Immature Granulocytes % (auto) 0.6 %; Lymphocytes # (auto) 1.69 K/uL (1.2-3.4); Lymphocytes % (auto) 19.6 %; Mean Corpuscular Hemoglobin 25.8 pg (25.0-34.0); Mean Corpuscular Hgb Conc 32.4 g/dL (32.0-36.0); Mean Corpuscular Volume 79.7 fL (80.0-100.0); Mean Platelet Volume 9.8 fL (9.4-12.4); Monocytes # (auto) 0.73 K/uL (0.11-0.59); Monocytes % (auto) 8.5 %; Neutrophils # (auto) 5.41 K/uL (1.40-6.50); Neutrophils % (auto) 62.7 %; Platelet Count 365 K/uL (130-400); RDW Coefficient of Variation 16.7 % (11.5-14.5); White Blood Count 8.62 K/ul (4.8-10.8)
[2022-11-23 08:07] LABS: BUN Creatinine Ratio 13.8 (10-20); Creatinine Clr Calc Pharmacy 81.3 ml/min; Est GFR (African American) 103.5 ml/min; Est GFR (Non-African American) 89.3 ml/min; Potassium 3.4 mmol/L (3.5-5.1)
[2022-11-23] MEDS: INSULIN ASPART PER UNIT CHARGE SC SCH ×2 (08:08→12:17)
[2022-11-23] MEDS: FERROUS SULFATE 325 MG TAB PO SCH (08:11)
[2022-11-23] MEDS: PANTOprazole 40 MG TAB PO SCH (08:11)
[2022-11-23] MEDS: TAMSULOSIN HCL 0.4 MG CAP PO SCH (08:11)
[2022-11-23] MEDS: ASPIRIN 81 MG ECTAB PO SCH (08:11)
[2022-11-23] MEDS: ADVANCED PROBIOTIC 1250 MG CAPSULE PO SCH (08:11)
[2022-11-23] MEDS: VENLAFAXINE HCL XR 75 MG CAPXR PO SCH (08:11)
[2022-11-23] MEDS: guaiFENesin 600 MG TABCR PO PRN (08:17)
[2022-11-23] MEDS ORDERED: POTASSIUM CHLORIDE CRTAB 20 MEQ TABCR PO STA (08:56)
[2022-11-23] MEDS ORDERED: amLODIPine BESYLATE 5 MG TAB PO SCH (09:00)
[2022-11-23] MEDS ORDERED: AMOXICILLIN 500 MG CAP PO SCH (09:45)
--- NOTE | 2022-11-23 13:16 | Discharge Summary ---
Date of Service November 23, 2022 Admission HPI Per Admitting Provider This is a 72-year-old female with PMH of type 2 diabetes, dyslipidemia, hypothyroidism, depression, anxiety, recent urological intervention with stent placement and removal by Dr. Aviles at [facility] and other medical problems listed below who presents with fever, chills and R flank pain. Patient with history of an E. coli UTI per outpatient urine culture from 10/17/22 and was treated with Cipro course. Also noted to have R hydronephrosis 2/2 distal ureteral stone which was removed with stent placement by Dr. Aviles at [facility] on 11/03. Returned for stent removal 2 days ago on 11/13 and reports persistent R flank pain since then. Overnight, patient developed a fever and it was 103 F this morning when she checked. Took 1 gm Tylenol at home and came to [facility] ED for further evaluation. Also endorses N/V this morning with 1 episode of vomiting occurring in the ED earlier. Feels better after antiemetics. Continues to have right-sided flank pain that wraps around to bladder with pain with urination. Also endorsing some urinary incontinence, which happens when she has a bladder infection per patient. Denies any lightheadedness, chest pain, shortness of breath, abdominal pain, hematuria, diarrhea or constipation. Admission Exam Per Admitting Provider General Appearance:WD/WN, vitals as above, NAD, sitting up in bed, pleasant, conversing easily, appears ill, flushed Head: normocephalic, atraumatic Eyes:normal inspection, PERRL, conjunctivae normal, anicteric sclerae ENT: external ear and nose normal, oropharynx normal Neck: normal visual inspection, trachea midline, no thyromegaly Respiratory:normal respiratory effort, lungs clear to auscultation, no wheeze, rales, rhonchi. No accessory muscle use Cardiovascular:tachycardic rate, regular rhythm, normal peripheral pulses, no BLE edema. Vessels: no JVD Chest: normal inspection of chest Abdomen/GI: normal bowel sounds, soft, nontender, no hepatosplenomegaly : R CVA TTP, suprapubic tenderness as well Extremities/Musculoskeletal: no cyanosis or clubbing, extremities motor strength 5/5 Neurologic: PERRL, EOMI, accommodation nl, no face palsy, no dysarthria, CN's II-XI intact bilaterally and moves all extremities Psychiatric:A+Ox3, euthymic affect Skin: no rashes, normal color, warm/dry Principal Diagnosis Complicated UTI/right pyelitis Severe sepsis POA Enterococcus faecalis bacteremia Discharge Exam GENERAL: Alert and oriented x3. NAD, on RA HEENT: No pallor, no icterus. Pupils equal, round and reactive to light. Oral mucosa moist. NECK: No JVD, no neck masses. HEART: S1 and S2 heard. Regular rate and rhythm. No murmur, no gallop. RESPIRATORY SYSTEM: Normal AP diameter. No accessory muscle use. No wheezing, no crackles ABDOMEN: Soft, bowel sounds present, right flank tenderness - resolved, no distention. CENTRAL NERVOUS SYSTEM: No facial droop. Speech is clear. Obeys simple commands. Moves extremities. EXTREMITIES: No edema, no erythema seen. CVA angle tenderness x right, resolved Discharge Data Allergies Allergy/AdvReac Type Severity Reaction Status Date / Time meperidine [From Demerol] Allergy Severe DIFFICULTY Verified 11/15/22 15:32 WITH BREATHING morphine Allergy Intermediate ITCHING Verified 11/15/22 15:32 ALL OVER Consultations 11/15/22 16:14 ED Decision to Admit Stat 11/15/22 16:38 Consult Urology Routine 11/16/22 09:10 Consult Infectious Diseases Routine Ordered Studies 11/15/22 13:27 CT abd pelvis IV con only Stat 11/17/22 15:38 CT head/brain wo con Routine Hospital Course (1) Sepsis: (2) Complicated UTI (urinary tract infection): (3) Hydronephrosis, right: (4) Hyperlipidemia: (5) GERD (gastroesophageal reflux disease): (6) Anxiety: (7) Diabetes mellitus, type 2: (8) Hypertension: Plan 72-year-old female with PMH of type 2 diabetes, dyslipidemia, hypothyroidism, depression, anxiety, recent urological intervention with stent placement and removal by Dr. Aviles at [facility] and other medical problems listed below who presented with fever, chills and R flank pain meeting criteria for severe sepsis 2/2 complicated UTI. She was managed for the following: Complicated UTI/right pyelitis: Admitting CT abdomen pelvis suggestive of right hydronephrosis and pyelitis Severe sepsis POA: WBC/respiratory rate/pulse rate/temperature/lactate elevated at presentation GPC bacteremia: Blood culture 11/15 positive for GPC bacteremia Patient had recent right-sided urological stent removal followed by initiation of right-sided flank discomfort and temperature. Patient does report urinary frequency. Urine culture-NGTD. Patient has a history of E. coli UTI multiple times in the past. Patient was started on cefepime 11/15, ampicillin added 11/16. - Cefepime stopped 11/17. Repeat Blood Cx 11/16 with NGTD- ID recommended 14 days of Antibiotic therapy (7 day iv ampi + 7 day amox). C/w probiotic. IV antibiotic is stopped, p.o. antibiotic started, DC home. Patient has been afebrile and is hemodynamically stable. 11/17 ECHO w/ no vegetations. Urology consulted- since patient has remarkable clinical improvement no plan for stent placement for now. Anemia Appears microcytic Iron panel with low iron Supplemental iron ordered. Continue on discharge. Follow-up with PCP for long- term follow-up/care. DM II: A1c 7.6 in September 2022. Hold home agents . SSI while in-patient . BSG AC HS HTN : Continue home blood pressure medications. HLD : Continue statin Anxiety, depression : Continue venlafaxine DVT Ppx: SCDS, ambulation, due to anemia. Code status: FULL PCP: Kenan Patient being discharged to home with following instruction at the point of discharge: Follow-up with your primary care physician within a week time and likely you will need labs CBC/CMP/magnesium/phosphorus. You were managed for complicated UTI/right pyelitis, you are transitioned to oral antibiotic from today, to be continued for next 7 days. Continue with probiotic. Follow-up with urology in about 2 weeks time upon discharge or as prior. For your blood pressure, as discussed at the bedside a small dose of amlodipine at 2.5 mg daily in the morning has been added. Continue to take your prior lisinopril in the evening. Measure blood pressure twice a day, maintain a log to take to your primary care physician for further evaluation/management of your blood pressure. As your potassium level were on the low normal to low side while in hospital, you are being discharged on small dose of potassium supplement. You will need evaluation on whether or not to continue potassium supplement in a week time by repeating blood lab at the PCP office. Coordinate with the PCP office during your next visit within a week time. Please make sure that you are able to get your medications today by calling your pharmacy before you leave the hospital so that your treatment continuity is not broken. Home Health Attestation I certify that this patient is under my care and that I, or a physicians mechanic assistant working with me, had a face to-face encounter that meets the home health [id number] encounter requirements with this patient. The encounter with the patient was in whole, or in part, for the following medical condition, which is the primary reason for home health care (list medical condition): I certify that, based on my findings, the following services are medically necessary home health services: My clinical findings support the need for the above services because: Further, I certify that my clinical findings support that this patient is homebound (i.e. absences from home require considerable and taxing effort and are for medical reasons or orthodox services or infrequently or of short duration when for other reasons) because: Certification for Home Health Services: Based on the above findings, I certify that this patient is confined to the home and needs intermittent alf care, physical therapy and/or speech therapy or continues to need occupational therapy. The patient is under my care, and I have initiated the establishment of the plan of care. This patient will be followed by a physician who will periodically review the plan of care. Total Time Total Time Spent Total Time Spent (In Minutes): 45 Discharge Plan Discharge Items Patient Disposition: Home - Self-Care Reason For Visit: SEPSIS, RECENT URETERAL PROCEDURE, PYELITIS Discharge Diagnosis: Complicated UTI/right pyelitis Severe sepsis POA Enterococcus faecalis bacteremia Activity: Resume your previous activity Non-emergency contact: Primary Care Provider Call non-emergency contact if: you have any medication questions, your symptoms worsen and your temperature is above 101 Follow-up/Referrals: Sumanth Grayson MD [Primary Care Provider] - (Date & Time 11/25/2022 3:00 PM Provider Manny Wood MD Department Family Medicine [facility] ) Diet: Carb Consistent or DM2 and Heart Healthy Addtl Attending Provider Instructions: Follow-up with your primary care physician within a week time and likely you will need labs CBC/CMP/magnesium/phosphorus. You were managed for complicated UTI/right pyelitis, you are transitioned to oral antibiotic from today, to be continued for next 7 days. Continue with probiotic. Follow-up with urology in about 2 weeks time upon discharge or as prior. For your blood pressure, as discussed at the bedside a small dose of amlodipine at 2.5 mg daily in the morning has been added. Continue to take your prior lisinopril in the evening. Measure blood pressure twice a day, maintain a log to take to your primary care physician for further evaluation/management of your blood pressure. As your potassium level were on the low normal to low side while in hospital, you are being discharged on small dose of potassium supplement. You will need evaluation on whether or not to continue potassium supplement in a week time by repeating blood lab at the PCP office. Coordinate with the PCP office during your next visit within a week time. Please make sure that you are able to get your medications today by calling your pharmacy before you leave the hospital so that your treatment continuity is not broken. Pending Studies at Discharge: No Stand-Alone Forms: [facility] [employer], Smoking Cessation Medications and DC Order Prescriptions: New amoxicillin 500 mg Capsule 500 mg PO BID 7 Days Qty: 14 0RF ferrous sulfate 325 mg (65 mg iron) Tablet,Delayed Release (Dr/Ec) 325 mg PO QAM Qty: 30 0RF amlodipine [Norvasc] 5 mg Tablet 2.5 mg PO QAM Qty: 15 0RF azelastine 137 mcg (0.1 %) Aerosol,[place] 1 spray NA BID PRN (Reason: allergic rhinitis/sinus congestion) Qty: 30 0RF Advanced Probiotic 625 mg (10 billion cell) Capsule 2 cap PO DAILY 10 Days Qty: 20 0RF guaifenesin [Mucinex] 600 mg Tablet Extended Release 12hr 600 mg PO Q12 PRN (Reason: cough) 5 Days Qty: 10 0RF potassium chloride 10 mEq tablet extended release 10 meq PO DAILY Qty: 7 0RF Continued atorvastatin 40 mg Tablet 40 mg PO PM aspirin 81 mg Tablet,Delayed Release (Dr/Ec) 81 mg PO QAM pantoprazole 40 mg Tablet,Delayed Release (Dr/Ec) 40 mg PO QAM metformin 1,000 mg Tablet 1,000 mg PO BID lisinopril 10 mg Tablet 10 mg PO QPM oxycodone-acetaminophen [Percocet] 5-325 mg tablet 1 tab PO Q6H PRN (Reason: pain) Qty: 14 0RF venlafaxine 75 mg capsule,extended release 24hr 75 mg PO QAM alendronate 70 mg tablet 70 mg PO WK tamsulosin 0.4 mg capsule 0.4 mg PO DAILY Discharge Orders: Discharge Order (Routine); Ordered 11/23/22 Ordered By: Sherrill Fall Admission Data Admit Date/Time: 11/15/22 16:36 Attending Provider: Sherrill Fall Admit Provider: Ernestina Tejeda Primary Care Provider: Sumanth Grayson Other Providers: Ernestina Tejeda ; David Hollins ; Jhonny Barreto ; Jose Alfredo Garces ; Elliott Alvarez I. ; Amaury Mohamud II ; Corinna Sherwood ; Gregg Schulte ; Akbar Ruff ; Frida Pierre ; Sherrill Fall
== END 2022-11-23 15:10 | disposition home or self-care (01) | DRG 698 ==
LOC: ED 12:45 → SUATTDRO 16:36 → 2S 16:36 → 3N 11-19 22:16